=== PATIENT | female | born 1955 | race Caucasian/White ===

== ENCOUNTER 2017-12-14 14:02 | Inpatient (IN) ==
[2017-12-14] MEDS ORDERED: 0.9 % Sodium Chloride 1,000 ML IVC ONE (14:28)
[2017-12-14 15:06] LABS: Basophils % 0.2 %; Eosinophils # 0.1 K/mcL (0.0-0.6); Eosinophils % 1.1 %; Hematocrit 36.2 % (35.3-44.9); Hemoglobin 12.7 g/dL (11.5-15.4); Immature Granulocytes % 0.9 % (0-4); Lymphocytes # 1.2 K/mcL (0.6-4.6); Lymphocytes % 9.5 %; Mean Corpuscular HGB Conc 35.1 g/dL (31.6-35.5); Mean Corpuscular Hemoglobin 33.2 pg (28.0-33.3); Mean Corpuscular Volume 94.8 fL (83.0-100.0); Mean Platelet Volume 11.5 fL (9.4-12.4); Monocytes # 0.8 K/mcL (0.0-1.3); Monocytes % 6.7 %; Platelet Count 193 K/mcL (140-400); Red Blood Count 3.82 M/mcL (3.82-4.97); Red Cell Distribution Width 13.8 % (11.5-14.5); Segmented Neutrophils % 81.6 %
[2017-12-14 15:19] LABS: INR 0.8; Prothrombin Time 9.4 Seconds (9.4-12.1)
[2017-12-14 15:21] LABS: Activated Partial Thrombo Time 25.8 Seconds (26.0-36.0)
[2017-12-14 15:31] LABS: Alanine Aminotransferase 15 Units/L (7-52); Albumin 3.7 g/dL (3.5-5.7); Albumin/Globulin Ratio 1.3 (1.1-2.2); Alkaline Phosphatase 104 Units/L (34-104); Aspartate Amino Transferase 30 Units/L (13-39); BUN/Creatinine Ratio 6 (6-26); Bilirubin,Direct 0.3 mg/dL (0.0-0.2); Bilirubin,Indirect 0.6 mg/dL (0.0-1.2); Bilirubin,Total 0.9 mg/dL (0.3-1.0); Blood Urea Nitrogen 7 mg/dL (8-23); Calcium 9.4 mg/dL (8.6-10.3); Carbon Dioxide 41 mEq/L (23-29); Chloride 73 mEq/L (98-107); Creatine Kinase 123 Units/L (30-223); Ethanol < 10 mg/dL (Less than 10); Globulin 2.8 g/dL (2.4-3.5); Glucose 150 mg/dL (70-105); Osmolality,Calculated 255 (280-300); Potassium 2.1 mEq/L (3.5-5.1); Sodium 122 mEq/L (136-145); Total Protein 6.5 g/dL (6.4-8.9); Troponin I < 0.03 ng/mL (< 0.04); eGFR For Non-African Americans 50 (> 60)
[2017-12-14 15:34] LABS: Bilirubin,Urine Negative (Negative); Blood,Urine Moderate (Negative); Clarity,Urine Turbid (Clear); Color,Urine Yellow (Yellow); Glucose,Urine (UA) Normal (Normal); Ketones,Urine Negative (Negative); Leukocyte Esterase,Urine Large (Negative); Nitrite,Urine Negative (Negative); Protein,Urine Trace mg/dL (Neg-Trace); Specific Gravity,Urine 1.007 (1.010-1.025); Urobilinogen,Urine Normal (Normal)
[2017-12-14 15:35] LABS: Bacteria,Urine Many per hpf (None-Few); Hyaline Casts,Urine None Seen per lpf (None-Few); Squamous Epithelial Cell,Urine Many per lpf (None-Few); WBC,Urine TNTC per hpf (0-3)
[2017-12-14 15:40] LABS: Thyroid Stimulating Hormone 1.175 mcIU/mL (0.340-5.600)
[2017-12-14 15:44] LABS: Amphetamine Screen,Urine Negative ng/mL (Cutoff=1000); Barbiturate Screen,Urine Negative ng/mL (Cutoff=200); Benzodiazepines Screen,Urine Negative ng/mL (Cutoff=200); Cannabinoid Screen,Urine Negative ng/mL (Cutoff = 50); Cocaine Screen,Urine Negative ng/mL (Cutoff= 300); Opiate Screen,Urine Negative ng/mL (Cutoff=300); Phencyclidine Screen,Urine Negative ng/mL (Cutoff=25)
[2017-12-14 15:46] LABS: Platelet Estimate Slight Decrease (Normal)
[2017-12-14] MEDS ORDERED: cefTRIAXone 1,000 MG in Water for inj. (sterile) 20 ML 10 ML IVP ONE (15:52)
[2017-12-14] MEDS ORDERED: 0.9 % Sodium Chloride 1,000 ML IVC SCH (16:00)
--- NOTE | 2017-12-14 16:30 | Emergency Department Note ---
Disposition Clinical Impression: Hypokalemia Disposition: Admitted As Inpatient Condition: Undetermined Referrals: NONE,PCP [Primary Care Provider] - General Adult HPI - General Chief complaint: ED Psychiatric Symptoms Stated complaint: "1A eval/AMS?" Time Seen by Provider: 12/14/17 14:11 Nursing Notes Reviewed: Yes Vital Signs Reviewed: Yes - History of Present Illness HPI Narrative: This is a 62-year-old female who presents with concern for altered mental status. Apparently she has been acting pretty confused at home. She has been preaching the word of God. She actually showed up at gnosticism and was escorted out by the police. She was interrupting the sermon and actually arguing with the preacher. She has a history of COPD, tobacco abuse. She does smoke multiple packs of cigarettes a day. She has no pain or complaints at this time but does acknowledge that her behavior has been peculiar. She has no focal deficits on arrival. General: No acute distress HEENT: Pupils equal and reactive to light, extraoccular muscle movement is normal, TMS are clear bilaterally. Heart: RRR, No murmor rub or gallop Lungs: lungs clear, no wheezing, rales or ronchi. ABD: SNT, no focal areas or tenderness, no guarding or rebound tenderness. Extremities: No cyanosis, clubbing or edema Neuro: CN 2-12 in tact, no focal deficit. strength 5/5. A 12 point review of systems was completed and pertinent positives were discussed in history of present illness Medical decision making Findings consistent with altered mental status, possible urinary tract infection , hypokalemia. Will start potassium replacement both intravenous and orally. We will admit to the hospital after initiation of ceftriaxone. Blood culture was sent. Urinary culture was sent. The patient be admitted for further management of electrolyte derangements in the setting of altered mental status. Pain Scale: 0 - Related Data Home Medications Medication Instructions Recorded Confirmed Albuterol Sulfate [Proair Hfa] 2 puff IH Q4H PRN 10/30/15 10/30/15 Budesonide/Formoterol 80/4.5 2 puff IH BID 10/30/15 10/30/15 [Symbicort 80/4.5] Dicyclomine [Bentyl] 10 - 20 mg PO QID 10/30/15 10/30/15 Guaifenesin [Mucinex] 1,200 mg PO DAILY 10/30/15 10/30/15 Lisinopril [Zestril] 10 mg PO DAILY 10/30/15 10/30/15 Lovastatin [Mevacor] 40 mg PO HS 10/30/15 10/30/15 Omeprazole [PriLOSEC] 20 mg PO DAILY 10/30/15 10/30/15 Previous Rx's Medication Instructions Recorded predniSONE [Prednisone] 50 mg PO DAILY #6 tablet 11/15/17 Allergies Allergy/AdvReac Type Severity Reaction Status Date / Time No Known Allergies Allergy Verified 04/28/15 17:21 Past Medical History - Past Medical History Medical history: Reports: arthritis, asthma, cancer, COPD, GERD, hyperlipidemia , hypertension, osteoporosis Surgical history: Reports: hysterectomy, other Psychiatric history: Reports: no psych history [employer] WORK[employer] history: Reports: bilateral tubal ligation - Social History Smoking Status: Current every day smoker Smokeless Tobacco Status: No Alcohol use: Reports: none Drug use: Reports: none Physical Exam - General General appearance: alert Course Vital Signs Temperature 99.2 F 12/14/17 14:05 Pulse Rate 99 12/14/17 14:05 Respiratory Rate 16 12/14/17 14:05 Blood Pressure 119/78 12/14/17 14:05 O2 Sat by Pulse Oximetry 93 12/14/17 14:05 Temperature 99.2 F 12/14/17 14:49 Pulse Rate 81 12/14/17 16:18 Respiratory Rate 18 12/14/17 16:18 Blood Pressure 143/84 12/14/17 16:18 O2 Sat by Pulse Oximetry 97 12/14/17 16:18 Oxygen Delivery Oxygen Delivery Room Air Medical Decision Making - Lab Data Result diagrams: 12/14/17 14:54 12/14/17 14:54 Lab Results 12/14/17 12/14/17 12/14/17 Range/Units 14:54 14:54 14:54 WBC 12.2 H (4.3-11.1) K/mcL RBC 3.82 (3.82-4.97) M/mcL Hgb 12.7 (11.5-15.4) g/dL Hct 36.2 (35.3-44.9) % MCV 94.8 (83.0-100.0) fL MCH 33.2 (28.0-33.3) pg MCHC 35.1 (31.6-35.5) g/dL RDW 13.8 (11.5-14.5) % Plt Count 193 (140-400) K/mcL MPV 11.5 (9.4-12.4) fL Immature Gran % 0.9 (0-4) % Seg Neutrophils % 81.6 % Lymphocytes % 9.5 % Monocytes % 6.7 % Eosinophils % 1.1 % Basophils % 0.2 % Neutrophils # 10.0 H (1.6-8.9) K/mcL Lymphocytes # 1.2 (0.6-4.6) K/mcL Monocytes # 0.8 (0.0-1.3) K/mcL Eosinophils # 0.1 (0.0-0.6) K/mcL Basophils # 0.0 (0.0-0.2) K/mcL Platelet Estimate Slight Decrease L (Normal) PT 9.4 (9.4-12.1) Seconds INR 0.8 APTT 25.8 L (26.0-36.0) Seconds Carboxyhemoglobin (0-5) % Sodium 122 L (136-145) mEq/L Potassium 2.1 L* (3.5-5.1) mEq/L Chloride 73 L (98-107) mEq/L Carbon Dioxide 41 H* (23-29) mEq/L BUN 7 L (8-23) mg/dL Creatinine 1.10 (0.60-1.20) mg/dL Est GFR ( Amer) > 60 (> 60) Est GFR (Non-Af Amer) 50 L (> 60) BUN/Creatinine Ratio 6 (6-26) Glucose 150 H (70-105) mg/dL Calculated Osmolality 255 L (280-300) Calcium 9.4 (8.6-10.3) mg/dL Total Bilirubin 0.9 (0.3-1.0) mg/dL Direct Bilirubin 0.3 H (0.0-0.2) mg/dL Indirect Bilirubin 0.6 (0.0-1.2) mg/dL AST 30 (13-39) Units/L ALT 15 (7-52) Units/L Alkaline Phosphatase 104 (34-104) Units/L Ammonia (16-53) mcmol/L Creatine Kinase 123 (30-223) Units/L Troponin I < 0.03 (< 0.04) ng/mL Serum Total Protein 6.5 (6.4-8.9) g/dL Albumin 3.7 (3.5-5.7) g/dL Globulin 2.8 (2.4-3.5) g/dL Albumin/Globulin Ratio 1.3 (1.1-2.2) TSH 1.175 (0.340-5.600) mcIU/mL Urine Color (Yellow) Urine Clarity (Clear) Urine pH (5.0-8.0) pH Units Ur Specific Issue (1.010-1.025) Urine Protein (Neg-Trace) mg/dL Urine Glucose (UA) (Normal) mg/dL Urine Ketones (Negative) mg/dL Urine Blood (Negative) Urine Nitrite (Negative) Urine Bilirubin (Negative) Urine Urobilinogen (Normal) mg/dL Ur Leukocyte Esterase (Negative) Urine Microscopic RBC (0-3) per hpf Urine Microscopic WBC (0-3) per hpf Ur Squamous Epith Cells (None-Few) per lpf Urine Bacteria (None-Few) per hpf Hyaline Casts (None-Few) per lpf Ur Culture Indicated? (NO) Urine Opiates Screen (Jitcap=008) ng/mL Ur Barbiturates Screen (Kibgpd=454) ng/mL Ur Phencyclidine Scrn (Cutoff=25) ng/mL Ur Amphetamines Screen (Lmgnpw=5817) ng/mL U Benzodiazepines Scrn (Tbfgcp=165) ng/mL Urine Cocaine Screen (Cutoff= 300) ng/mL U Marijuana (THC) Screen (Cutoff = 50) ng/mL Ur Drug Screen Interp Ethyl Alcohol < 10 (Less than 10) mg/dL 12/14/17 12/14/17 12/14/17 Range/Units 14:54 15:08 15:16 WBC (4.3-11.1) K/mcL RBC (3.82-4.97) M/mcL Hgb (11.5-15.4) g/dL Hct (35.3-44.9) % MCV (83.0-100.0) fL MCH (28.0-33.3) pg MCHC (31.6-35.5) g/dL RDW (11.5-14.5) % Plt Count (140-400) K/mcL MPV (9.4-12.4) fL Immature Gran % (0-4) % Seg Neutrophils % % Lymphocytes % % Monocytes % % Eosinophils % % Basophils % % Neutrophils # (1.6-8.9) K/mcL Lymphocytes # (0.6-4.6) K/mcL Monocytes # (0.0-1.3) K/mcL Eosinophils # (0.0-0.6) K/mcL Basophils # (0.0-0.2) K/mcL Platelet Estimate (Normal) PT (9.4-12.1) Seconds INR APTT (26.0-36.0) Seconds Carboxyhemoglobin 11.7 H (0-5) % Sodium (136-145) mEq/L Potassium (3.5-5.1) mEq/L Chloride (98-107) mEq/L Carbon Dioxide (23-29) mEq/L BUN (8-23) mg/dL Creatinine (0.60-1.20) mg/dL Est GFR ( Amer) (> 60) Est GFR (Non-Af Amer) (> 60) BUN/Creatinine Ratio (6-26) Glucose (70-105) mg/dL Calculated Osmolality (280-300) Calcium (8.6-10.3) mg/dL Total Bilirubin (0.3-1.0) mg/dL Direct Bilirubin (0.0-0.2) mg/dL Indirect Bilirubin (0.0-1.2) mg/dL AST (13-39) Units/L ALT (7-52) Units/L Alkaline Phosphatase (34-104) Units/L Ammonia 35 (16-53) mcmol/L Creatine Kinase (30-223) Units/L Troponin I (< 0.04) ng/mL Serum Total Protein (6.4-8.9) g/dL Albumin (3.5-5.7) g/dL Globulin (2.4-3.5) g/dL Albumin/Globulin Ratio (1.1-2.2) TSH (0.340-5.600) mcIU/mL Urine Color Yellow (Yellow) Urine Clarity Turbid A (Clear) Urine pH 6.0 (5.0-8.0) pH Units Ur Specific Issue 1.007 L (1.010-1.025) Urine Protein Trace (Neg-Trace) mg/dL Urine Glucose (UA) Normal (Normal) mg/dL Urine Ketones Negative (Negative) mg/dL Urine Blood Moderate H (Negative) Urine Nitrite Negative (Negative) Urine Bilirubin Negative (Negative) Urine Urobilinogen Normal (Normal) mg/dL Ur Leukocyte Esterase Large H (Negative) Urine Microscopic RBC 3-5 H (0-3) per hpf Urine Microscopic WBC TNTC H (0-3) per hpf Ur Squamous Epith Cells Many H (None-Few) per lpf Urine Bacteria Many H (None-Few) per hpf Hyaline Casts None Seen (None-Few) per lpf Ur Culture Indicated? NO. A (NO) Urine Opiates Screen (Eyacwq=355) ng/mL Ur Barbiturates Screen (Slhovw=342) ng/mL Ur Phencyclidine Scrn (Cutoff=25) ng/mL Ur Amphetamines Screen (Vujbxx=0374) ng/mL U Benzodiazepines Scrn (Rcyiie=589) ng/mL Urine Cocaine Screen (Cutoff= 300) ng/mL U Marijuana (THC) Screen (Cutoff = 50) ng/mL Ur Drug Screen Interp Ethyl Alcohol (Less than 10) mg/dL 12/14/17 Range/Units 15:22 WBC (4.3-11.1) K/mcL RBC (3.82-4.97) M/mcL Hgb (11.5-15.4) g/dL Hct (35.3-44.9) % MCV (83.0-100.0) fL MCH (28.0-33.3) pg MCHC (31.6-35.5) g/dL RDW (11.5-14.5) % Plt Count (140-400) K/mcL MPV (9.4-12.4) fL Immature Gran % (0-4) % Seg Neutrophils % % Lymphocytes % % Monocytes % % Eosinophils % % Basophils % % Neutrophils # (1.6-8.9) K/mcL Lymphocytes # (0.6-4.6) K/mcL Monocytes # (0.0-1.3) K/mcL Eosinophils # (0.0-0.6) K/mcL Basophils # (0.0-0.2) K/mcL Platelet Estimate (Normal) PT (9.4-12.1) Seconds INR APTT (26.0-36.0) Seconds Carboxyhemoglobin (0-5) % Sodium (136-145) mEq/L Potassium (3.5-5.1) mEq/L Chloride (98-107) mEq/L Carbon Dioxide (23-29) mEq/L BUN (8-23) mg/dL Creatinine (0.60-1.20) mg/dL Est GFR ( Amer) (> 60) Est GFR (Non-Af Amer) (> 60) BUN/Creatinine Ratio (6-26) Glucose (70-105) mg/dL Calculated Osmolality (280-300) Calcium (8.6-10.3) mg/dL Total Bilirubin (0.3-1.0) mg/dL Direct Bilirubin (0.0-0.2) mg/dL Indirect Bilirubin (0.0-1.2) mg/dL AST (13-39) Units/L ALT (7-52) Units/L Alkaline Phosphatase (34-104) Units/L Ammonia (16-53) mcmol/L Creatine Kinase (30-223) Units/L Troponin I (< 0.04) ng/mL Serum Total Protein (6.4-8.9) g/dL Albumin (3.5-5.7) g/dL Globulin (2.4-3.5) g/dL Albumin/Globulin Ratio (1.1-2.2) TSH (0.340-5.600) mcIU/mL Urine Color (Yellow) Urine Clarity (Clear) Urine pH (5.0-8.0) pH Units Ur Specific Issue (1.010-1.025) Urine Protein (Neg-Trace) mg/dL Urine Glucose (UA) (Normal) mg/dL Urine Ketones (Negative) mg/dL Urine Blood (Negative) Urine Nitrite (Negative) Urine Bilirubin (Negative) Urine Urobilinogen (Normal) mg/dL Ur Leukocyte Esterase (Negative) Urine Microscopic RBC (0-3) per hpf Urine Microscopic WBC (0-3) per hpf Ur Squamous Epith Cells (None-Few) per lpf Urine Bacteria (None-Few) per hpf Hyaline Casts (None-Few) per lpf Ur Culture Indicated? (NO) Urine Opiates Screen Negative (Gkgstz=020) ng/mL Ur Barbiturates Screen Negative (Gflvxf=622) ng/mL Ur Phencyclidine Scrn Negative (Cutoff=25) ng/mL Ur Amphetamines Screen Negative (Agypls=5088) ng/mL U Benzodiazepines Scrn Negative (Umtpcg=842) ng/mL Urine Cocaine Screen Negative (Cutoff= 300) ng/mL U Marijuana (THC) Screen Negative (Cutoff = 50) ng/mL Ur Drug Screen Interp See Below Ethyl Alcohol (Less than 10) mg/dL
[2017-12-14] MEDS ORDERED: Ipratropium/Albuterol Neb 3 ML IH PRN (17:28)
[2017-12-14] MEDS ORDERED: Acetaminophen 325 MG TABLET PO PRN (17:30)
[2017-12-14] MEDS ORDERED: *HR* OxyCODONE Immed Rel 5 MG TABLET PO PRN (17:30)
[2017-12-14] MEDS ORDERED: Naloxone 0.4 MG/ML INJ IVP PRN (17:30)
--- NOTE | 2017-12-14 17:33 | Internal Med History&Physical ---
Date of Encounter: 12/14/17 Time of Encounter: 17:33 Internal Medicine - H&P: HPI Chief complaint: Altered mental status Admitted From: Home Plans for Post Hospital Care: Home History of present illness: Ms. Hoffmann is a 62 year old female with PMH of HLD , HTN, COPD, Tobacco abuse who presented to this facility in company of her family with complains of psychosis The patient reports being in this facility in November for COPD exacerbation, she was discharged home on steroids and Z-Lm. She continued to have symptoms of COPD and presented to her deputy insurance commissioner will give him more steroids. She reports that she thinks she might have missed her day dosing of the medications , as well as mixing up the dosing of her medication which included her antihypertensives and cholesterol medication. She reports that at the beginning of the week last week, she started having sensations of insects on her skin, she started feeling very hyperactive, and felt like she was feeling light headed. She reports " I got high because my neighbor was smoking marijuana. She also has been acting very bizzare, and according to her, and her family has been saying God has been speaking to her to do all sorts of things, which included arguing with a preacher in confucianism necessitating her removal from the premises. This is not her baseline. She also reports poor oral intake , she drinks pop most of the day She denies alcohol intake She reports these symptoms started during the period when she was taking prednisone for COPDE and worsened after she stopped taking it on instruction by her PCP (she called her PCP to complain of abnormal behavior by her). She also reports dysuria and suprapubic pain and tenderness. she calls is "I have been having "female issues" She denies vaginal discharge or uretheral discharge. She has no recent instrumentation She has no known psych history. She denied chest pain, SOB, leg swelling, calf swelling or tenderness. She has no focal weakness She has no known allergies. She denies ilicit drugs She smokes 1PPD of cigarettes Work up in the ER showed an unremarkable head and chesty imaging, UA was dirty with LE+, low osmolality, Chem showed Na of 122, K of 2.1, WBC 12,000, CO2 of 41 , hypochloremia, mild hyperglycema, LFT, TSH are WNL Ammonia level WNL, CK and Trop negative Past Med Surg Social Fam HX - Past Medical History Medical history: arthritis, asthma, atrial fibrillation, cancer, COPD, GERD, hyperlipidemia, hypertension, osteoporosis Additional medical history: HERNIA Psychiatric history: no psych history - Past Surgical History Surgical History: hysterectomy, other Additional surgical history: ovarian cancer cells removed - Social History Smoking Status: Current every day smoker Smokeless Tobacco Status: No Alcohol use: none Drug use: none - Family History Mother Living Status: Hx Family Neurologic Disorders: Yes (brain aneurysm) Father Living Status: Hx Family Cancer: Yes Internal Medicine - H&P: Meds Albuterol Sulfate [Proair Hfa] 2 puff IH Q4H PRN 10/30/15 [History] Lovastatin [Mevacor] 40 mg PO HS 10/30/15 [History] Omeprazole [PriLOSEC] 20 mg PO DAILY 10/30/15 [History] Fluticasone/Vilanterol [Breo Ellipta 100-25 Mcg INH] 1 puff IH DAILY 12/14/17 [ History] Lisinopril-HCTZ 20-12.5 [Prinzide 20-12.5] 1 tab PO DAILY 12/14/17 [History] Tiotropium [place] [Spiriva Respimat] 2 puff IH DAILY 12/14/17 [History] 3 Allergy/AdvReac Type Severity Reaction Status Date / Time No Known Allergies Allergy Verified 04/28/15 17:21 All Systems PM: A 10-system review of systems was performed and is negative for pertinent findings except as documented above in the HPI. - Constitutional Constitutional: as per HPI - EENT Eyes: as per HPI Ears: as per HPI Nose, mouth and throat: as per HPI - Cardiovascular Cardiovascular ROS IM: as per HPI - Respiratory Respiratory: as per HPI - Gastrointestinal Gastrointestinal: as per HPI - Genitourinary Genitourinary: as per HPI - Musculoskeletal Musculoskeletal ROS IM: as per HPI - Integumentary Integumentary IM: as per HPI - Neurological Neurological ROS: as per HPI - Hematologic/Lymphatic Hematologic/Lymphatic: as per HPI - Constitutional Vitals: Temp Pulse Resp BP Pulse Ox 99.2 F 81 18 143/84 97 12/14/17 14:49 12/14/17 16:18 12/14/17 16:18 12/14/17 16:18 10/08/18 16:18 General appearance: Present: A&O X 3 Exam: Gen: VSS Psych: Normal mood, normal affect, normal speech Neuro: AAOX3, moves all extremities , no focal deficits, normal speech, no focal weakness HEENT: xanthelasma, moist oral mucosa, no pallor , no cynosis Chest: CTAB Heart: S1, S2 only, no m/g/r Abdomen: Soft, suprapubic tenderness++ Extremities: NO pedal edema Skin: No rash Internal Med - H&P Results - Labs CBC & Chem 7: 12/14/17 14:54 12/14/17 14:54 Labs: Short CBC 12/14/17 Range/Units 14:54 WBC 12.2 H (4.3-11.1) K/mcL Hgb 12.7 (11.5-15.4) g/dL Hct 36.2 (35.3-44.9) % Plt Count 193 (140-400) K/mcL Neutrophils # 10.0 H (1.6-8.9) K/mcL BMP 12/14/17 14:54 Sodium 122 L Potassium 2.1 L* Chloride 73 L Carbon Dioxide 41 H* BUN 7 L Creatinine 1.10 Glucose 150 H Calcium 9.4 Cardiac Enzymes 12/14/17 Range/Units 14:54 Troponin I < 0.03 (< 0.04) ng/mL Liver Function 12/14/17 Range/Units 14:54 Total Bilirubin 0.9 (0.3-1.0) mg/dL Direct Bilirubin 0.3 H (0.0-0.2) mg/dL AST 30 (13-39) Units/L ALT 15 (7-52) Units/L Alkaline Phosphatase 104 (34-104) Units/L Albumin 3.7 (3.5-5.7) g/dL Urine 12/14/17 Range/Units 15:16 Urine Color Yellow (Yellow) Urine Clarity Turbid A (Clear) Urine pH 6.0 (5.0-8.0) pH Units Ur Specific [place] 1.007 L (1.010-1.025) Urine Protein Trace (Neg-Trace) mg/dL Urine Glucose (UA) Normal (Normal) mg/dL - Impressions ITS Impressions Chest X-Ray 12/14/17 14:28 IMPRESSION: No radiographic evidence for acute cardiopulmonary disease process. D/ / Tha Marquez / Tha Marquez Interpreting Provider: Tha Marquez Head CT 12/14/17 14:29 IMPRESSION: 1.No acute intracranial abnormality. D/ / Izaiah Kennedy MD / Izaiah Kennedy MD Interpreting Provider: Izaiah Kennedy MD - Assessment and plan (1) Encephalopathy Current Visit: Yes Status: Acute Assessment and plan: Improving Multifactorial: Steroid induced psychosis, UTI, Hyponatremia, Hypokalemia Head CT unremarkable Continue to monitor Will treat underlying problems (2) Hyponatremia with decreased serum osmolality Current Visit: Yes Status: Acute Assessment and plan: Hypoosmola hyponatremia with patient on HCTZ, recent prolonged steroid use and poor oral intake Obtain Urine Na and Osmolality IVF begun by ER N saline at 125cc/hr, continue same, Rpt chem q6hr Goal Na correction is 6 meq in 24 hrs If Na > by more than 5meq, will give D5 Hold HCTZ TSH WNL Check lipids with a.m labs (3) Hypokalemia Current Visit: Yes Status: Acute Assessment and plan: Replaced by ER with 40meq po and 40meq IV pt with chem q6h Continue to monitor (4) UTI (urinary tract infection) Current Visit: Yes Status: Suspected Assessment and plan: Suspected Patient is symptomatic with confusion and psychosis, dysuria, frequency and suprapubic tenderness COntinue Ceftriaxone daily Send blood and urine cultures Follow final urine cultures Qualifiers: Urinary tract infection type: acute cystitis Hematuria presence: with hematuria Qualified Code(s): N30.01 - Acute cystitis with hematuria (5) Obesity Current Visit: Yes Status: Chronic Assessment and plan: encourage weight loss Qualifiers: Obesity type: unspecified obesity type Obesity classification: adult class 3 (BMI >= 40) Serious obesity comorbidity presence: without serious comorbidity Body mass index: BMI 40.0-44.9 Qualified Code(s): E66.01 - Morbid (severe) obesity due to excess calories; Z68.41 - Body mass index (BMI) 40.0-44.9, adult (6) COPD (chronic obstructive pulmonary disease) Current Visit: Yes Status: Chronic Assessment and plan: Not in exacerbation Chest is CTAB Duonebs prn Qualifiers: COPD type: unspecified COPD Qualified Code(s): J44.9 - Chronic obstructive pulmonary disease, unspecified (7) Hypertension Current Visit: Yes Status: Chronic Assessment and plan: Continue lisinopril Hold HCTZ Add Norvasc prn Qualifiers: Hypertension type: essential hypertension Qualified Code(s): I10 - Essential (primary) hypertension (8) Dyslipidemia Current Visit: Yes Status: Chronic Assessment and plan: has xanthelasma Check lipid panel Continue home dose of statin (9) Afib Current Visit: Yes Status: Chronic Assessment and plan: per chart Not on any a/c including ASA CHADS score is 1 for HTN HR controlled EKG is sinus at this time Continue to monitor Qualifiers: Atrial fibrillation type: paroxysmal Qualified Code(s): I48.0 - Paroxysmal atrial fibrillation - Time Spent With Patient Total time spent is greater than 50% in coordination of care (as documented) at patient's floor/unit and/or counseling patient:
[2017-12-14 18:25] LABS: VBG HCO3 41 mEq/L (21-27); VBG PCO2 49 mmHg (41-51); VBG PH 7.53 pH Units (7.32-7.42); VBG PO2 53 mmHg (25-50)
[2017-12-14] MEDS ORDERED: Lisinopril 20 MG TABLET PO ONE (18:30)
[2017-12-14 20:36] LABS: Chol/HDL Ratio 2.3 (0-4.9)
[2017-12-14 20:43] LABS: BUN/Creatinine Ratio 6 (6-26); Blood Urea Nitrogen 6 mg/dL (8-23); Calcium 9.1 mg/dL (8.6-10.3); Carbon Dioxide 40 mEq/L (23-29); Chloride 78 mEq/L (98-107); Glucose 145 mg/dL (70-105); Osmolality,Calculated 258 (280-300); Potassium 2.3 mEq/L (3.5-5.1); Sodium 124 mEq/L (136-145); eGFR For Non-African Americans 56 (> 60)
[2017-12-14] MEDS: *HR* HYDROcodone/Acet 5/325 mg TABLET PO PRN (21:47)
[2017-12-15 02:14] LABS: Basophils % 0.2 %; Eosinophils # 0.1 K/mcL (0.0-0.6); Eosinophils % 1.4 %; Hematocrit 31.3 % (35.3-44.9); Lymphocytes # 1.6 K/mcL (0.6-4.6); Lymphocytes % 18.5 %; Mean Corpuscular HGB Conc 35.5 g/dL (31.6-35.5); Mean Corpuscular Hemoglobin 33.7 pg (28.0-33.3); Mean Corpuscular Volume 95.1 fL (83.0-100.0); Mean Platelet Volume 11.2 fL (9.4-12.4); Monocytes # 0.7 K/mcL (0.0-1.3); Monocytes % 8.1 %; Neutrophils # 6.2 K/mcL (1.6-8.9); Platelet Count 167 K/mcL (140-400); Red Blood Count 3.29 M/mcL (3.82-4.97); Segmented Neutrophils % 70.8 %
[2017-12-15 02:20] LABS: Hemoglobin 11.1 g/dL (11.5-15.4)
[2017-12-15 02:20] LABS: VBG HCO3 40 mEq/L (21-27); VBG PCO2 39 mmHg (41-51); VBG PH 7.62 pH Units (7.32-7.42); VBG PO2 105 mmHg (25-50)
[2017-12-15 02:33] LABS: BUN/Creatinine Ratio 7 (6-26); Blood Urea Nitrogen 7 mg/dL (8-23); Calcium 8.7 mg/dL (8.6-10.3); Carbon Dioxide 37 mEq/L (23-29); Chloride 85 mEq/L (98-107); Glucose 123 mg/dL (70-105); Osmolality,Calculated 265 (280-300); Potassium 2.6 mEq/L (3.5-5.1); Sodium 128 mEq/L (136-145); eGFR For Non-African Americans 58 (> 60)
--- NOTE | 2017-12-15 03:44 | Event Note ---
Date of Encounter: 12/15/17 Time of Encounter: 02:30 I was notified by the nurse of VBG critical lab result. pH on VBG 7.624. Vitals stable, I examined the patient and she was completely asymptomatic and without complaints, A&Ox3. No further orders at this time. Repeat labs pending at 04: 00.
[2017-12-15] MEDS: *HR* Enoxaparin 40 MG/0.4 ML SYRINGE SQ SCH (05:39)
[2017-12-15 06:11] LABS: BUN/Creatinine Ratio 6 (6-26); Blood Urea Nitrogen 6 mg/dL (8-23); Calcium 8.7 mg/dL (8.6-10.3); Carbon Dioxide 39 mEq/L (23-29); Chloride 85 mEq/L (98-107); Glucose 112 mg/dL (70-105); Osmolality,Calculated 266 (280-300); Potassium 2.4 mEq/L (3.5-5.1); Sodium 129 mEq/L (136-145); eGFR For Non-African Americans > 60 (> 60)
[2017-12-15] MEDS ORDERED: Potassium Chloride 40 MEQ, Lidocaine 1% 2 ML in D5% in Water 500 ML IVPB ONE (06:14)
[2017-12-15] MEDS: Lisinopril 20 MG TABLET PO SCH (08:33)
[2017-12-15] MEDS ORDERED: cefTRIAXone 1,000 MG in Water for inj. (sterile) 20 ML 10 ML IVP SCH (09:00)
[2017-12-15] MEDS ORDERED: Lisinopril-HCTZ 20-12.5mg TABLET PO SCH (09:00)
[2017-12-15 13:17] LABS: BUN/Creatinine Ratio 6 (6-26); Blood Urea Nitrogen 6 mg/dL (8-23); Calcium 9.2 mg/dL (8.6-10.3); Carbon Dioxide 40 mEq/L (23-29); Chloride 89 mEq/L (98-107); Glucose 110 mg/dL (70-105); Osmolality,Calculated 274 (280-300); Potassium 3.1 mEq/L (3.5-5.1); Sodium 133 mEq/L (136-145); eGFR For Non-African Americans 51 (> 60)
--- NOTE | 2017-12-15 17:17 | Internal Med Progress Note ---
Hospitalist Progress Note - Encounter Date of Encounter: 12/15/17 Time of Encounter: 11:00 - Subjective Interval History: Patient's altered mental status has resolved and hyponatremia gradually improving as is her hypokalemia Patient however requiring supplemental oxygenation this afternoon. - Exam Vitals: Temp Pulse Resp BP Pulse Ox 97.5 F L 84 14 124/75 97 12/15/17 10:22 12/15/17 16:21 12/15/17 16:21 12/15/17 16:21 12/15/17 16:21 Exam: Gen.: Nonacute distress, alert and oriented 3 ENT: Mucosal membranes moist Respiratory: Lungs are clear to auscultation bilaterally without any wheezing rhonchi or rales Cardiovascular: Normal S1 and S2 regular rate rhythm no murmurs rubs or gallops Abdomen: Soft, nontender and nondistended with positive bowel sounds Extremities: No lower extremity edema Skin: Normal color - Assessment and Plan (1) Encephalopathy Current Visit: Yes Status: Acute Assessment and Plan: Resolved; CT of the head without any acute findings UTI treated as above (2) Hyponatremia with decreased serum osmolality Current Visit: Yes Status: Acute Assessment and Plan: Hypoosmola hyponatremia with patient on HCTZ, recent prolonged steroid use and poor oral intake Hyponatremia improving Serum sodium was 128 on admission 12/14/17 and today is 133 Normal saline has been discontinued this morning; continue to monitor (3) Hypokalemia Current Visit: Yes Status: Acute Assessment and Plan: Serum potassium 3.1 this morning from 2.3 on admission Continue replacements (4) UTI (urinary tract infection) Current Visit: Yes Status: Suspected Assessment and Plan: Patient is symptomatic with confusion and psychosis, dysuria, frequency and suprapubic tenderness Continue Ceftriaxone daily; cultures pending (5) COPD (chronic obstructive pulmonary disease) Current Visit: Yes Status: Chronic Assessment and Plan: Stable; continue dual nebs as needed (6) Hypertension Current Visit: Yes Status: Chronic Assessment and Plan: Continue lisinopril and holding HCTZ (7) Dyslipidemia Current Visit: Yes Status: Chronic Assessment and Plan: Continue home dose of statin (8) Afib Current Visit: Yes Status: Chronic Assessment and Plan: Not on any a/c including ASA CHADS score is 1 for HTN (9) Obesity Current Visit: Yes Status: Chronic Assessment and Plan: Lifestyle modifications - Time Spent with Patient Total time spent is greater than 50% in coordination of care (as documented) at patient's floor/unit and/or counseling patient: Internal Medicine: Result - Labs CBC & Chem 7: 12/15/17 01:54 12/15/17 12:46 Labs: Short CBC 12/15/17 Range/Units 01:54 WBC 8.7 (4.3-11.1) K/mcL Hgb 11.1 L D (11.5-15.4) g/dL Hct 31.3 L (35.3-44.9) % Plt Count 167 (140-400) K/mcL Neutrophils # 6.2 (1.6-8.9) K/mcL BMP 12/14/17 12/15/17 12/15/17 19:58 01:54 05:21 Sodium 124 L 128 L 129 L Potassium 2.3 L* 2.6 L 2.4 L* Chloride 78 L 85 L 85 L Carbon Dioxide 40 H* 37 H 39 H BUN 6 L 7 L 6 L Creatinine 1.01 0.98 0.94 Glucose 145 H 123 H 112 H Calcium 9.1 8.7 8.7 12/15/17 12/15/17 09:35 12:46 Sodium 133 L Potassium 2.7 L 3.1 L Chloride 89 L Carbon Dioxide 40 H* BUN 6 L Creatinine 1.09 Glucose 110 H Calcium 9.2 - ABG Interpretation ABG results: PT/INR, D-dimer PT 9.4 Seconds (9.4-12.1) 12/14/17 14:54 Consult Discharge Plan - Plan Referrals: Logan Condon MD [Non-Partnered Physician] - (4) UTI (urinary tract infection) Qualifiers: Urinary tract infection type: acute cystitis Hematuria presence: with hematuria Qualified Code(s): N30.01 - Acute cystitis with hematuria (5) COPD (chronic obstructive pulmonary disease) Qualifiers: COPD type: unspecified COPD Qualified Code(s): J44.9 - Chronic obstructive pulmonary disease, unspecified (6) Hypertension Qualifiers: Hypertension type: essential hypertension Qualified Code(s): I10 - Essential (primary) hypertension (8) Afib Qualifiers: Atrial fibrillation type: paroxysmal Qualified Code(s): I48.0 - Paroxysmal atrial fibrillation (9) Obesity Qualifiers: Obesity type: unspecified obesity type Obesity classification: adult class 3 (BMI >= 40) Serious obesity comorbidity presence: without serious comorbidity Body mass index: BMI 40.0-44.9 Qualified Code(s): E66.01 - Morbid (severe) obesity due to excess calories; Z68.41 - Body mass index (BMI) 40.0-44.9, adult
--- NOTE | 2017-12-15 18:51 | Electrocardiograph Report ---
[place] [address] Test Date: 2017-12-14 Pat Name: Arabella Hoffmann Department: [id number] Room: 3A11 Gender: F Customer Relations Advisor: : [id number] Requested By: Inderjit Gaytan Order Number: [id number] Reading MD: Reymundo Branch Measurements Intervals [place] Rate: 94 P: 81 KS: 143 QRS: 80 QRSD: 106 T: 79 QT: 470 QTc: Interpretive Statements Sinus rhythm Nonspecific ST-T changes Electronically Signed On 12-15-2017 18:50:10 EDT by Reymundo Branch
[2017-12-15] MEDS: Budesonide/Formoterol 160/4.5 1 PUFF INH IH SCH (20:19)
[2017-12-15] MEDS: *HR* HYDROcodone/Acet 5/325 mg TABLET PO PRN (23:49)
[2017-12-16] MEDS: *HR* Enoxaparin 40 MG/0.4 ML SYRINGE SQ SCH (06:31)
[2017-12-16] MEDS: *HR* HYDROcodone/Acet 5/325 mg TABLET PO PRN (06:31)
[2017-12-16] MEDS: Budesonide/Formoterol 160/4.5 1 PUFF INH IH SCH (07:43)
[2017-12-16] MEDS: Lisinopril 20 MG TABLET PO SCH (08:29)
[2017-12-16 08:42] LABS: Basophils # 0.1 K/mcL (0.0-0.2); Basophils % 0.7 %; Eosinophils # 0.2 K/mcL (0.0-0.6); Eosinophils % 3.2 %; Hematocrit 35.4 % (35.3-44.9); Immature Granulocytes % 1.1 % (0-4); Lymphocytes # 2.1 K/mcL (0.6-4.6); Lymphocytes % 30.2 %; Mean Corpuscular HGB Conc 33.9 g/dL (31.6-35.5); Mean Corpuscular Hemoglobin 33.1 pg (28.0-33.3); Mean Corpuscular Volume 97.8 fL (83.0-100.0); Mean Platelet Volume 11.2 fL (9.4-12.4); Monocytes # 0.7 K/mcL (0.0-1.3); Monocytes % 10.1 %; Neutrophils # 3.8 K/mcL (1.6-8.9); Platelet Count 194 K/mcL (140-400); Red Blood Count 3.62 M/mcL (3.82-4.97); Red Cell Distribution Width 14.6 % (11.5-14.5); Segmented Neutrophils % 54.7 %
[2017-12-16] MEDS ORDERED: Ziprasidone injection 20 MG/ML VIAL IM ONE (08:54)
[2017-12-16 09:01] LABS: BUN/Creatinine Ratio 8 (6-26); Blood Urea Nitrogen 8 mg/dL (8-23); Calcium 9.4 mg/dL (8.6-10.3); Carbon Dioxide 37 mEq/L (23-29); Chloride 91 mEq/L (98-107); Glucose 109 mg/dL (70-105); Osmolality,Calculated 279 (280-300); Sodium 135 mEq/L (136-145); eGFR For Non-African Americans 56 (> 60)
[2017-12-16] MEDS ORDERED: *HR* LORazepam 2 MG/ML VIAL ONE ×2 (09:25→15:57)
[2017-12-16] MEDS ORDERED: *HR* LORazepam 2 MG/ML VIAL IVP ONE ×2 (09:30→15:54)
--- NOTE | 2017-12-16 09:38 | Event Note ---
Date of Encounter: 12/16/17 Time of Encounter: 09:00 Called by nurse this morning due to patient experiencing acute psychosis. Upon arrival at patient's room, patient had door shut with staff inside. When patient finally opened the door she grabbed a hold of me in began proclaiming that "God sent her to talk to me and in that we are to fight this in Court together." Patient was not confused and was alert and oriented 3 but was delusional and could not talk patient out of her delusions. Patient continued to hold onto me and would not let me go stating "she did not want me to leave her side because that is what God told her." Due to prolonged QT interval, patient was not given Geodon or Haldol but was given a 2 mg IV Benadryl. Will give patient Ativan if needed. Psychiatry was called for patient to be admitted 1A under psychiatric care due to acute delusional psychosis. Patient was admitted with hyponatremia which has resolved and patient's cultures negative for UTI. Patient is medically stable and cleared for admission to 1 a psychiatric unit.
[2017-12-16] MEDS ORDERED: Tiotropium 18 MCG inhalation IH SCH (10:00)
[2017-12-16 12:20] VITALS: BP 134/72
[2017-12-16] MEDS ORDERED: Potassium Chloride Elixir 20 MEQ/15 ML UDC PO ONE (12:32)
[2017-12-16] MEDS: *HR* LORazepam 1 MG TABLET PO ONE ×2 (15:18→16:03)
--- NOTE | 2017-12-16 15:31 | Discharge Summary ---
- NOTES TO OUTPATIENT PROVIDER Notes to Outpatient Provider: none Date of Encounter: 12/16/17 Time of Encounter: 11:00 - Discharge Diagnosis (1) Encephalopathy Priority: Primary Status: Acute (2) Hyponatremia with decreased serum osmolality Priority: Secondary Status: Acute (3) Hypokalemia Priority: Secondary Status: Acute (4) UTI (urinary tract infection) Priority: Secondary Status: Suspected Qualifiers: Urinary tract infection type: site unspecified Hematuria presence: with hematuria Qualified Code(s): N39.0 - Urinary tract infection, site not specified; R31.9 - Hematuria, unspecified (5) COPD (chronic obstructive pulmonary disease) Priority: Secondary Status: Chronic Qualifiers: COPD type: unspecified COPD Qualified Code(s): J44.9 - Chronic obstructive pulmonary disease, unspecified (6) Hypertension Priority: Secondary Status: Chronic Qualifiers: Hypertension type: essential hypertension Qualified Code(s): I10 - Essential (primary) hypertension (7) Dyslipidemia Priority: Secondary Status: Chronic (8) Afib Priority: Secondary Status: Chronic Qualifiers: Atrial fibrillation type: paroxysmal Qualified Code(s): I48.0 - Paroxysmal atrial fibrillation (9) Obesity Priority: Secondary Status: Chronic Qualifiers: Obesity type: unspecified obesity type Obesity classification: adult class 3 (BMI >= 40) Serious obesity comorbidity presence: without serious comorbidity Body mass index: BMI 40.0-44.9 Qualified Code(s): E66.01 - Morbid (severe) obesity due to excess calories; Z68.41 - Body mass index (BMI) 40.0-44.9, adult Hospital course: Patient is a 62-year-old female with past medical history significant for HLD , HTN, COPD, Tobacco abuse who presented to this facility in company of her family with complains of psychosis. The patient reports being in this facility in November for COPD exacerbation, she was discharged home on steroids and Z-Lm. She continued to have symptoms of COPD and presented to her site leader will give him more steroids. She reports that at the beginning of the week last week, she started having sensations of insects on her skin, she started feeling very hyperactive, and felt like she was feeling light headed. She reports " I got high because my neighbor was smoking marijuana. She also has been acting very bizzare, and according to her, and her family has been saying God has been speaking to her to do all sorts of things, which included arguing with a preacher in anglican necessitating her removal from the premises. This is not her baseline. During patients hospital stay she was treated for hyponatremia which resolved in addition to hypokalemia which improved. However patient psychosis did not improve and psychiatry consulted with recommendation for inpatient psychiatric management. - Time Spent with Patient Total time spent providing and/or coordinating discharge services: Less than 30 minutes - Discharge Medications Home Medications: Albuterol Sulfate [Proair Hfa] 2 puff IH Q4H PRN 10/30/15 [History] Lovastatin [Mevacor] 80 mg PO HS 10/30/15 [History] Omeprazole [PriLOSEC] 20 mg PO DAILY 10/30/15 [History] Fluticasone/Vilanterol [Breo Ellipta 100-25 Mcg INH] 1 puff IH DAILY 12/14/17 [ History] Lisinopril-HCTZ 20-12.5 [Prinzide 20-12.5] 1 tab PO DAILY 12/14/17 [History] Tiotropium [place] [Spiriva Respimat] 2 puff IH DAILY 12/14/17 [History] Allergies/Adverse Reactions: 3 Allergy/AdvReac Type Severity Reaction Status Date / Time No Known Allergies Allergy Verified 04/28/15 17:21 Date of admission: 12/14/17 17:30 Primary care physician: PCP NONE Consults: 12/14/17 19:05 Consult to Neurology Stroke Physician [CONS] Routine Reason for Consult: Financial coverage for meds, O2, nebulizers, original O2 through [facility] 12/16/17 09:25 Consult to Psychiatry [CONS] Stat Consulting Provider: Psych[facility] Reason consult: Psychosis - Constitutional Vitals: Temp Pulse Resp BP Pulse Ox 97.5 F L 90 16 134/72 96 12/16/17 06:22 12/16/17 12:19 12/16/17 12:19 12/16/17 12:19 12/16/17 12:19 General appearance: Present: A&O X 3 Exam: Gen.: Nonacute distress, alert and oriented 3 Psych: Psychosis - Patient Status Disposition: Home, Self-Care Condition: Undetermined - Discharge Instructions Follow Up With: Logan Condon MD [Non-Partnered Physician] -
--- NOTE | 2017-12-16 16:51 | Consult Note ---
Date of Encounter: 12/16/17 Time of Encounter: 15:00 Assessment & Recommendation (1) Bipolar disorder, current episode manic severe with psychotic features Status: Acute History of Present Illness Patient: new to practice Requesting Physician: Navjot Guerrero Reason for consult: confusion History of present illness: Ms. Hoffmann is a 62 year old female Patient was seen and evaluated. She told me that she needed me to step over the side because she was talking to God. This patient presents with a one-week history of distractibility decreased need for sleep grandiosity grandiose and sabianist delusions flight of ideas excessive activities thoughtlessness and excessive and loud speech. CC: Navjot Guerrero Past Med Surg Social Fam HX - Past Medical History Medical history: arthritis, asthma, atrial fibrillation, cancer, COPD, GERD, hyperlipidemia, hypertension, osteoporosis - Past Surgical History Surgical History: hysterectomy, other - Social History Smoking Status: Current every day smoker Smokeless Tobacco Status: No Alcohol use: none Drug use: none - Family History Mother Living Status: Hx Family Neurologic Disorders: Yes (brain aneurysm) Father Living Status: Hx Family Cancer: Yes Medications & Allergies Albuterol Sulfate [Proair Hfa] 2 puff IH Q4H PRN 10/30/15 [History] Lovastatin [Mevacor] 80 mg PO HS 10/30/15 [History] Omeprazole [PriLOSEC] 20 mg PO DAILY 10/30/15 [History] Fluticasone/Vilanterol [Breo Ellipta 100-25 Mcg INH] 1 puff IH DAILY 12/14/17 [ History] Lisinopril-HCTZ 20-12.5 [Prinzide 20-12.5] 1 tab PO DAILY 12/14/17 [History] Tiotropium [place] [Spiriva Respimat] 2 puff IH DAILY 12/14/17 [History] 3 Allergy/AdvReac Type Severity Reaction Status Date / Time No Known Allergies Allergy Verified 04/28/15 17:21 Review of Systems Psychiatric: Reports: abnormal sleep pattern, auditory hallucinations Psychiatry Exam - Constitutional Vitals: Temp Pulse Resp BP Pulse Ox 97.5 F L 90 16 134/72 96 12/16/17 06:22 12/16/17 12:19 12/16/17 12:19 12/16/17 12:19 10/10/18 12:19 General appearance: age & developmentally appropriate, thin - Musculoskeletal Gait: brisk - Psychiatric Patient Orientation: Yes Person, Yes Time, Yes Place Level of alertness: Alert Behavior: impulsive, talkative, dramatic Psychomotor activity: Increased Eye Contact: Maintains Eye Contact Mood Description: Expansive, Irritable Affect description: inappropriate to situation Speech Volume: Loud Thought Process: Tangential, Racing Thought Content: Yes Preoccupation, Yes Buddhism delusion, Yes Grandiose delusion Perceptual Disturbances: Yes Reacting to internal stimuli, Yes Auditory hallucinations, Yes Visual hallucinations Attention Span Ability: Unable to Focus Patient Reliability: Not Reliable Historian Intelligence Estimate: Average Judgment: Limited Insight: Minimal Results - Labs Labs: Laboratory Last Values WBC 7.0 K/mcL (4.3-11.1) 12/16/17 08:09 RBC 3.62 M/mcL (3.82-4.97) L 12/16/17 08:09 Hgb 12.0 g/dL (11.5-15.4) 12/16/17 08:09 Hct 35.4 % (35.3-44.9) 12/16/17 08:09 MCV 97.8 fL (83.0-100.0) 12/16/17 08:09 MCH 33.1 pg (28.0-33.3) 12/16/17 08:09 MCHC 33.9 g/dL (31.6-35.5) 12/16/17 08:09 RDW 14.6 % (11.5-14.5) H 12/16/17 08:09 Plt Count 194 K/mcL (140-400) 12/16/17 08:09 MPV 11.2 fL (9.4-12.4) 12/16/17 08:09 Immature Gran % 1.1 % (0-4) 12/16/17 08:09 Seg Neutrophils % 54.7 % 12/16/17 08:09 Lymphocytes % 30.2 % 12/16/17 08:09 Monocytes % 10.1 % 12/16/17 08:09 Eosinophils % 3.2 % 12/16/17 08:09 Basophils % 0.7 % 12/16/17 08:09 Neutrophils # 3.8 K/mcL (1.6-8.9) 12/16/17 08:09 Lymphocytes # 2.1 K/mcL (0.6-4.6) 12/16/17 08:09 Monocytes # 0.7 K/mcL (0.0-1.3) 12/16/17 08:09 Eosinophils # 0.2 K/mcL (0.0-0.6) 12/16/17 08:09 Basophils # 0.1 K/mcL (0.0-0.2) 12/16/17 08:09 Platelet Estimate Slight Decrease (Normal) L 12/14/17 14:54 PT 9.4 Seconds (9.4-12.1) 12/14/17 14:54 INR 0.8 12/14/17 14:54 APTT 25.8 Seconds (26.0-36.0) L 12/14/17 14:54 VBG pH 7.62 pH Units (7.32-7.42) H* 12/15/17 02:15 VBG pCO2 39 mmHg (41-51) L 12/15/17 02:15 VBG pO2 105 mmHg (25-50) H 12/15/17 02:15 VBG HCO3 40 mEq/L (21-27) H 12/15/17 02:15 Carboxyhemoglobin 11.7 % (0-5) H 12/14/17 15:08 Sodium 135 mEq/L (136-145) L 12/16/17 08:09 Potassium 3.0 mEq/L (3.5-5.1) L 12/16/17 08:09 Chloride 91 mEq/L (98-107) L 12/16/17 08:09 Carbon Dioxide 37 mEq/L (23-29) H 12/16/17 08:09 BUN 8 mg/dL (8-23) 12/16/17 08:09 Creatinine 1.00 mg/dL (0.60-1.20) 12/16/17 08:09 Est GFR ( Amer) > 60 (> 60) 12/16/17 08:09 Est GFR (Non-Af Amer) 56 (> 60) L 12/16/17 08:09 BUN/Creatinine Ratio 8 (6-26) 12/16/17 08:09 Glucose 109 mg/dL (70-105) H 12/16/17 08:09 Calculated Osmolality 279 (280-300) L 12/16/17 08:09 Calcium 9.4 mg/dL (8.6-10.3) 12/16/17 08:09 Magnesium 2.4 mg/dL (1.6-2.6) 12/15/17 01:54 Total Bilirubin 0.9 mg/dL (0.3-1.0) 12/14/17 14:54 Direct Bilirubin 0.3 mg/dL (0.0-0.2) H 12/14/17 14:54 Indirect Bilirubin 0.6 mg/dL (0.0-1.2) 12/14/17 14:54 AST 30 Units/L (13-39) 12/14/17 14:54 ALT 15 Units/L (7-52) 12/14/17 14:54 Alkaline Phosphatase 104 Units/L (34-104) 12/14/17 14:54 Ammonia 35 mcmol/L (16-53) 12/14/17 14:54 Creatine Kinase 123 Units/L (30-223) 12/14/17 14:54 Troponin I < 0.03 ng/mL (< 0.04) 12/14/17 14:54 Serum Total Protein 6.5 g/dL (6.4-8.9) 12/14/17 14:54 Albumin 3.7 g/dL (3.5-5.7) 12/14/17 14:54 Globulin 2.8 g/dL (2.4-3.5) 12/14/17 14:54 Albumin/Globulin Ratio 1.3 (1.1-2.2) 12/14/17 14:54 Triglycerides 80 mg/dL (< 150) 12/14/17 19:58 Cholesterol 147 mg/dL (< 200) 12/14/17 19:58 LDL Cholesterol, Calc 67 mg/dL (0-99) 12/14/17 19:58 VLDL Cholesterol, Calc 16 mg/dL (< 31) 12/14/17 19:58 HDL Cholesterol 64 mg/dL (40-59) H 12/14/17 19:58 Cholesterol/HDL Ratio 2.3 (0-4.9) 12/14/17 19:58 TSH 1.175 mcIU/mL (0.340-5.600) 12/14/17 14:54 Urine Color Yellow (Yellow) 12/14/17 15:16 Urine Clarity Turbid (Clear) A 12/14/17 15:16 Urine pH 6.0 pH Units (5.0-8.0) 12/14/17 15:16 Ur Specific [place] 1.007 (1.010-1.025) L 12/14/17 15:16 Urine Protein Trace mg/dL (Neg-Trace) 12/14/17 15:16 Urine Glucose (UA) Normal mg/dL (Normal) 12/14/17 15:16 Urine Ketones Negative mg/dL (Negative) 12/14/17 15:16 Urine Blood Moderate (Negative) H 12/14/17 15:16 Urine Nitrite Negative (Negative) 12/14/17 15:16 Urine Bilirubin Negative (Negative) 12/14/17 15:16 Urine Urobilinogen Normal mg/dL (Normal) 12/14/17 15:16 Ur Leukocyte Esterase Large (Negative) H 12/14/17 15:16 Urine Microscopic RBC 3-5 per hpf (0-3) H 12/14/17 15:16 Urine Microscopic WBC TNTC per hpf (0-3) H 12/14/17 15:16 Ur Squamous Epith Cells Many per lpf (None-Few) H 12/14/17 15:16 Urine Bacteria Many per hpf (None-Few) H 12/14/17 15:16 Hyaline Casts None Seen per lpf (None-Few) 12/14/17 15:16 Ur Culture Indicated? NO. (NO) A 12/14/17 15:16 Urine Osmolality 105 mOsm/kg (300-1090) L 12/14/17 21:07 Urine Sodium 29.6 mEq/L 12/14/17 21:07 Urine Opiates Screen Negative ng/mL (Hzkzmu=525) 12/14/17 15:22 Ur Barbiturates Screen Negative ng/mL (Fgfduy=591) 12/14/17 15:22 Ur Phencyclidine Scrn Negative ng/mL (Cutoff=25) 12/14/17 15:22 Ur Amphetamines Screen Negative ng/mL (Bvsvcg=9703) 12/14/17 15:22 U Benzodiazepines Scrn Negative ng/mL (Pmymql=490) 12/14/17 15:22 Urine Cocaine Screen Negative ng/mL (Cutoff= 300) 12/14/17 15:22 U Marijuana (THC) Screen Negative ng/mL (Cutoff = 50) 12/14/17 15:22 Ur Drug Screen Interp See Below 12/14/17 15:22 Ethyl Alcohol < 10 mg/dL (Less than 10) 12/14/17 14:54 Person Notif of Emerson Trimble 12/15/17 02:15 Consult Discharge Plan - Plan Referrals: Logan Condon MD [Non-Partnered Physician] -
== END 2017-12-16 16:43 | disposition home or self-care (01) | DRG 463 ==
LOC: EMEROOARM 14:02 → 3ANU 14:02 → SUATTDRO 17:30 → 3ANU 18:19
PROVIDERS: ADMIT Internal Medicine; ATTEND Hospitalist

== ENCOUNTER 2017-12-16 16:37 | Inpatient (IN) ==
[2017-12-16] MEDS ORDERED: *HR* LORazepam 2 MG/ML VIAL IM PRN (16:41)
[2017-12-16] MEDS ORDERED: Mag Hydrox/Al Hydrox/Simeth 30 ML UDC PO PRN (16:41)
[2017-12-16] MEDS ORDERED: MOM Conc 10 ML UD.LIQ PO PRN (16:41)
[2017-12-16] MEDS ORDERED: hydrOXYzine pamoate 25 MG CAPSULE PO PRN (16:41)
[2017-12-16] MEDS ORDERED: Haloperidol Lactate 5 MG/ML VIAL IM PRN (16:41)
[2017-12-16] MEDS ORDERED: traZODone 50 MG TABLET PO PRN (16:41)
[2017-12-16] MEDS ORDERED: *HR* LORazepam 1 MG TABLET PO PRN (16:41)
[2017-12-17] MEDS ORDERED: Tiotropium 18 MCG inhalation IH ONE (07:49)
[2017-12-17] MEDS: Lisinopril-HCTZ 20-12.5mg TABLET PO SCH (09:06)
[2017-12-17] MEDS: (Breo Ellipta 100-25 Mcg Inh) IH SCH (09:06)
[2017-12-17] MEDS ORDERED: Tiotropium 18 MCG inhalation IH SCH (10:00)
[2017-12-17] MEDS: Ibuprofen 400 MG TABLET PO PRN (12:27)
--- NOTE | 2017-12-17 14:26 | Psychiatry History & Physical ---
Date of Encounter: 12/17/17 Time of Encounter: 14:00 History of Present Illness Patient Stated Chief Complaint: I know he is innocent God told me so. Medicare Admission Attestation: For traditional Medicare patients the provided hospital inpatient services are reasonable and necessary and in the case of services not specified as inpatient -only under 42 CFR 419.22 (n), that they are appropriately provided as inpatient services in accordance 42 CFR 412.3. For Critical Access Hospital the patient may reasonably be expected to be discharged or transferred to a hospital within 96 hours after admission to the Critical Access Hospital. Admitted From: Intrahospital Transfer Plans for Post Hospital Care: Home History of Present Illness: Ms. Hoffmann is a 62 year old female The complaint. The patient's 62-year-old white female. She is and lives at home but she was transferred from the medical unit after being treated for a UTI. Chief complaint I did not want to go to the [facility]. History of present illness. The patient has a one-week disturbance of mood interest affect. When seen yesterday she was anxious speaking loud and intrusive gesticulating or responding to auditory hallucinations and believed that she was on a mission from God. Today the patient continues to have the features of felicia distractibility decreased need for sleep grandiosity caodaism delusions of flight of ideas excessive activity and overinvolvement excessive pressured speech. The thought content revolves around caodaism themes and the patient appears to be overzealous. Another example thoughtlessness was that she began arguing of the preacher in a prayer meeting and the police had to be called after she was escorted out for arguing with her she said that God was speaking to her. The patient has no major psychiatric history she is not been treated with mood stabilizers or nerve pills as far as I can tell. She has no trouble with alcohol or drugs by her report. She does smoke multiple packs of cigarettes per day and patient has bad COPD. In addition she has additional medical conditions. Of note the patient was placed on prednisone and given breathing treatments. She was started in November so the rapid onset of felicia is somewhat unexpected. Past medical history. Surgeries include tubal ligation. Illnesses atrial fibrillation, COPD, hypertension, low sodium, low potassium these are corrected smoking multiple packs per day. Her current medicines are as listed. And she has no known allergies Family history. The patient says that her son is innocent but he is been brought up on charges of rape which suggest the possibility of pedophilia. The patient's daughter told me yesterday that she has bipolar disorder. Social history the patient lives with her and her 16-year-old grandson. She is a high school graduate and she worked in a variety of places including the period The patient went on to describe a rather complicated situation involving her son who is currently brought on up on charges of rape. This involves these girlfriends daughter or daughters. This is been published in the [employer] and as a matter of public record. Nonetheless there is no conviction and the patient states that her son is innocent. The last article says that he was convicted but this case may be under appeal. Review of systems reveals shortness of breath. Patient had an desaturation went off oxygen. She has a fall risk as well Past Med Surg Social Fam HX - Past Medical History Medical history: arthritis, asthma, atrial fibrillation, cancer, COPD, GERD, hyperlipidemia, hypertension, osteoporosis - Past Psychiatric History Psychiatric history: Reports: no psych history Family psychiatric history: Yes Family History of Suicide: Unknown - Past Surgical History Surgical History: hysterectomy, other - Social History Smoking Status: Current every day smoker Smokeless Tobacco Status: No Alcohol use: none Drug use: none Occupational status: previously employed Current living situation: Home - Independent, With Family Activity Level: Independent ambulation Recent Out of Country Travel Within the Last 8 Weeks: No Exposure or Possible Exposure to Illness During Travel: No - Family History Mother Living Status: Hx Family Neurologic Disorders: Yes (brain aneurysm) Father Living Status: Hx Family Cancer: Yes Medications & Allergies Albuterol Sulfate [Proair Hfa] 2 puff IH Q4H PRN 10/30/15 [History] Lovastatin [Mevacor] 80 mg PO HS 10/30/15 [History] Omeprazole [PriLOSEC] 20 mg PO DAILY 10/30/15 [History] Fluticasone/Vilanterol [Breo Ellipta 100-25 Mcg INH] 1 puff IH DAILY 12/14/17 [ History] Lisinopril-HCTZ 20-12.5 [Prinzide 20-12.5] 1 tab PO DAILY 12/14/17 [History] Tiotropium [place] [Spiriva Respimat] 2 puff IH DAILY 12/14/17 [History] 3 Allergy/AdvReac Type Severity Reaction Status Date / Time No Known Allergies Allergy Verified 04/28/15 17:21 Review of Systems Respiratory: Reports: cough, dyspnea, wheezes Neurological: Reports: confusion Psychiatric: Reports: abnormal sleep pattern, irritability, mood swings Exam - HEENT Head exam IM: Present: atraumatic Eye exam IM: Present: EOMI, normal appearance, PERRL ENT exam IM: Present: normal exam - Neurological Neurological exam: Present: CN II-XII intact - Respiratory Respiratory exam IM: Present: CTAB - GI/Abdominal GI/Abdominal exam IM: Present: normal bowel sounds, soft. Absent: tenderness - Extremities Extremities exam IM: Present: full ROM - Skin Skin exam IM: Present: dry, warm - Additional Information Additional Information: The exam was performed with clinical nurse educator female medical student present. The patient had oxygen concentrator which was not on at the time of examination. The breath sounds were heard in lung velazquez but were distant. There were no carotid bruits - Constitutional Vitals: Temp Pulse Resp BP Pulse Ox 97.4 F L 98 20 149/88 88 12/17/17 09:00 12/17/17 09:00 12/17/17 09:00 12/17/17 09:00 12/17/17 09:00 General appearance: age & developmentally appropriate, well-groomed, well- nourished - Musculoskeletal Gait: normal Station: relaxed Strength & Tone: normal for patient - Psychiatric Patient Orientation: Yes Person, Yes Time, Yes Place Level of alertness: Alert Behavior: calm, impulsive, talkative, dramatic Psychomotor activity: Normal Eye Contact: Maintains Eye Contact Mood Description: Euphoric, Expansive Affect description: full range, labile, euphoric Speech Volume: Loud Speech pattern: normal rate, normal rhythm, normal tone, fluent, spontaneous, rambling, excessive, pressured Language & Vocabulary: consistent with education, high school level Thought Process: Linear, Goal Oriented, Racing Thought Content: No Suicidal ideation, No Homicidal ideation, No Overt delusions , Yes Congregation delusion, Yes Grandiose delusion Perceptual Disturbances: No Auditory hallucinations, No Visual hallucinations Attention Span Ability: Unable to Sustain Attention Memory Description: Grossly Intact Patient Reliability: Questionable Historian Fund of knowledge: Yes abstraction ability, Yes average, Yes aware of current events Intelligence Estimate: Average Judgment: Limited Insight: Minimal Assessment and Plan (1) Nicotine dependence, cigarettes, with other nicotine-induced disorders Current visit: Yes Status: Chronic Plan: Family/Supportive other meeting Risks, benefits, side effects, alternatives discussed w/pt: Yes Patient agreeable to treatment: Yes (2) Bipolar disorder, current episode manic severe with psychotic features Current visit: Yes Status: Acute Plan: Admit inpatient for safety and stabilization, Close observation, Suicide Precautions per unit protocol, Encourage participation in unit milieu, Group Therapy, Monitor sleep, Monitor appetite, Secure weapons, Family/Supportive other meeting Risks, benefits, side effects, alternatives discussed w/pt: Yes Patient agreeable to treatment: Yes Plans for Post Hospital Care: Home Estimated Length of Stay (Days): 11
[2017-12-17] MEDS: ARIPiprazole 2 MG TABLET PO SCH (20:34)
[2017-12-18] MEDS: Tiotropium 18 MCG inhalation IH SCH ×2 (01:35→08:52)
[2017-12-18] MEDS: (Breo Ellipta 100-25 Mcg Inh) IH SCH (08:53)
[2017-12-18] MEDS: Lisinopril-HCTZ 20-12.5mg TABLET PO SCH (08:53)
[2017-12-18] MEDS ORDERED: Tiotropium 18 MCG inhalation IH SCH (10:00)
--- NOTE | 2017-12-18 13:46 | Psychiatry Progress Note ---
Date of Encounter: 12/18/17 Time of Encounter: 13:45 Subjective Interval history: ID the patient is a 62-year-old white female. Chief complaint I know my signs heart is pure and I know my heart is pure. History of present illness. The patient improved significantly after 2 mg of aripiprazole. She rejects that she has psychiatric illness such as bipolar disorder but does except that she may have had a steroid psychosis or adverse reaction to therapeutic uses of corticosteroids. She is less confused and she had told people that she was spiritually worn out the patient is oxygen dependent and needs to remain on medicines. The patient would like to clear her son's name. But the patient has been insistent and providing his excessive details. The patient does not want to have further psychiatric treatment but is willing to stay in the hospital. No significant side effects to Abilify is been noted. The patient has said that she will stop smoking and that the Lord is healed her from this. The patient is not attending to hallucinations she was previously stated agreed to let me write a letter to her primary care physician internet sales consultant. Review of Systems Psychiatric: Reports: abnormal sleep pattern, auditory hallucinations, irritability, mood swings Results - Vital Signs Vital Signs: Temp Pulse Resp BP Pulse Ox 99.2 F 92 32 160/70 94 12/18/17 09:00 12/18/17 09:00 12/18/17 09:00 12/18/17 09:00 12/18/17 09:00 Assessment and Plan (1) Nicotine dependence, cigarettes, with other nicotine-induced disorders Current visit: Yes Status: Chronic Risks, benefits, side effects, alternatives discussed w/pt: Yes Patient agreeable to treatment: Yes (2) Bipolar disorder, current episode manic severe with psychotic features Current visit: Yes Status: Acute Risks, benefits, side effects, alternatives discussed w/pt: Yes Patient agreeable to treatment: Yes (3) COPD (chronic obstructive pulmonary disease) with emphysema Current visit: Yes Status: Acute Plan: Continue hospitalization, Monitor appetite Risks, benefits, side effects , alternatives discussed w/pt: Yes Patient agreeable to treatment: Yes Qualifiers: Emphysema type: unspecified Qualified Code(s): J43.9 - Emphysema, unspecified (4) Supplemental oxygen dependent Current visit: Yes Status: Acute Plan: Continue hospitalization, Close observation, Suicide Precautions per unit protocol, Encourage participation in unit milieu Risks, benefits, side effects , alternatives discussed w/pt: Yes Patient agreeable to treatment: Yes (5) Adrenal cortical steroids causing adverse effect in therapeutic use Current visit: Yes Status: Acute Plan: Continue hospitalization, Close observation, Suicide Precautions per unit protocol, Encourage participation in unit milieu Risks, benefits, side effects , alternatives discussed w/pt: Yes Patient agreeable to treatment: Yes (6) Mood disorder with manic features due to general medical condition Current visit: Yes Status: Acute Plan: Continue hospitalization, Close observation, Suicide Precautions per unit protocol, Encourage participation in unit milieu Risks, benefits, side effects , alternatives discussed w/pt: Yes Patient agreeable to treatment: Yes Consult Discharge Plan - Plan Referrals: [facility] [place] [Outside] - 01/04/18 1:30 pm (The above appointment is with Dr. Condon for primary healthcare and medication management services. You will also see Leonora, in the same office, for mental health counseling after you finish with Dr. Condon.) Psychiatry Exam - Constitutional Vitals: Temp Pulse Resp BP Pulse Ox 99.2 F 92 32 160/70 94 12/18/17 09:00 12/18/17 09:00 12/18/17 09:00 12/18/17 09:00 12/18/17 09:00 General appearance: age & developmentally appropriate, well-groomed, well- nourished - Musculoskeletal Gait: normal Station: relaxed Strength & Tone: normal for patient - Psychiatric Patient Orientation: Yes Person, Yes Time, Yes Place Level of alertness: Alert Behavior: calm, cooperative Psychomotor activity: Normal Eye Contact: Maintains Eye Contact Mood Description: Expansive, Irritable Affect description: congruent with mood, dysphoric, inappropriate to situation Speech Volume: Normal Speech pattern: normal rate, normal rhythm, normal tone, fluent, spontaneous Language & Vocabulary: consistent with education Thought Process: Linear, Goal Oriented Thought Content: No Suicidal ideation, No Homicidal ideation, No Overt delusions , Yes Congregational delusion Perceptual Disturbances: No Auditory hallucinations, No Visual hallucinations Attention Span Ability: Capable of Focused Attention Memory Description: Grossly Intact Patient Reliability: Questionable Historian Fund of knowledge: Yes abstraction ability, Yes aware of current events Intelligence Estimate: Average Judgment: Limited Insight: Minimal
[2017-12-18] MEDS: ARIPiprazole 2 MG TABLET PO SCH (20:15)
[2017-12-18] MEDS: Ibuprofen 400 MG TABLET PO PRN (23:12)
[2017-12-19] MEDS: Lisinopril-HCTZ 20-12.5mg TABLET PO SCH (08:42)
[2017-12-19] MEDS: Tiotropium 18 MCG inhalation IH SCH (08:43)
[2017-12-19] MEDS: (Breo Ellipta 100-25 Mcg Inh) IH SCH (08:46)
--- NOTE | 2017-12-19 10:15 | Psychiatry Progress Note ---
Date of Encounter: 12/19/17 Time of Encounter: 10:13 Subjective Interval history: Patient seen for follow-up. Case discussed with nursing staff staff report patient continued to be religiously preoccupied, also she is concerned about her son who has legal issues. She is medication compliant and medically stable. She denies any suicidal ideation. Anxious to go home. Speech is overdetailed and circumstantial. Review of Systems Psychiatric: Reports: abnormal sleep pattern, auditory hallucinations, irritability, mood swings Results - Vital Signs Vital Signs: Temp Pulse Resp BP Pulse Ox 97.9 F 88 20 156/77 97 12/19/17 08:51 12/19/17 08:51 12/19/17 08:51 12/19/17 08:51 12/19/17 08:51 Assessment and Plan (1) Mood disorder with manic features due to general medical condition Current visit: Yes Status: Acute Plan: Continue hospitalization, Close observation, Suicide Precautions per unit protocol, Encourage participation in unit milieu, Group Therapy, Monitor sleep, Monitor appetite Risks, benefits, side effects, alternatives discussed w/pt: Yes Patient agreeable to treatment: Yes Consult Discharge Plan - Plan Referrals: [facility] [place] [Outside] - 01/04/18 1:30 pm (The above appointment is with Dr. Condon for primary healthcare and medication management services. You will also see Leonora, in the same office, for mental health counseling after you finish with Dr. Condon.) Psychiatry Exam - Constitutional Vitals: Temp Pulse Resp BP Pulse Ox 97.9 F 88 20 156/77 97 12/19/17 08:51 12/19/17 08:51 12/19/17 08:51 12/19/17 08:51 12/19/17 08:51 General appearance: age & developmentally appropriate, well-nourished, unkempt, obese - Musculoskeletal Gait: normal, slow Station: relaxed Strength & Tone: normal for patient - Psychiatric Patient Orientation: Yes Person, Yes Time, Yes Place Level of alertness: Alert Behavior: calm, cooperative, suspicious Psychomotor activity: Normal Eye Contact: Maintains Eye Contact Mood Description: Euthymic/stable, Anxious, Labile Affect description: congruent with mood, labile, anxious Speech Volume: Normal Speech pattern: normal rate, normal rhythm, normal tone, fluent, spontaneous, inappropriate to situation, excessive Language & Vocabulary: consistent with education Thought Process: Linear, Goal Oriented, Tangential, Flight of Ideas Thought Content: No Suicidal ideation, No Homicidal ideation, No Overt delusions , Yes Preoccupation, Yes Mormon delusion Perceptual Disturbances: No Auditory hallucinations, No Visual hallucinations Attention Span Ability: Capable of Focused Attention Memory Description: Grossly Intact Patient Reliability: Reliable Historian Fund of knowledge: Yes abstraction ability, Yes aware of current events Intelligence Estimate: Average Judgment: Limited Insight: Partial
--- NOTE | 2017-12-19 20:14 | Internal Medicine Consult Note ---
<Salo Arshad - Last Filed: 12/19/17 21:20> Date of Encounter: 12/19/17 Time of Encounter: 20:13 - Assessment and plan (1) Chest pain Current Visit: Yes Status: Acute Assessment and plan: Chest pain, likely secondary to anxiety vs. hypertension Atypical in nature, occurred at rest and resolved spontaneously. HEART Score 2 Patient did experience transiently elevated blood pressure associated with this. Lability in BP hints toward anxiety as possible source EKG Demonstrates Normal sinus rhythm, no ST-T wave changes consistent with ischemia. Troponin is negative We recommend treatment of patient's anxiety with PRN ativan which has been previously ordered We will give Clonidine 0.1mg one time order if BP continues to remain elevated Additionally, plan to change BP meds as below. Patient is very low suspicion for ACS, do not plan to trend troponins at this time Continue to monitor vitals. We will follow. Qualifiers: Chest pain type: other chest pain Qualified Code(s): R07.89 - Other chest pain; R07.8 - Other chest pain (2) Hypertension Current Visit: Yes Status: Acute Assessment and plan: Acutely elevated BP Patient has been maintained on lisinopril-HCTZ .5 however continues to have elevated BP In addition to this, she continues to have electrolyte derangements and has now developed MATA We will discontinue Lisinopril-HCTZ at this time Start Amlodipine 10mg PO Daily Start Hydralazine 25mg PO TID Suspect that this acute Hypertension is in part caused by anxiety Recommend treatment of anxiety with established dose of PRN ativan Recheck BP following dose of ativan, if BP remains elevated at that time, will give one time dose of Clonidine 0.1mg PO Qualifiers: Hypertension type: essential hypertension Qualified Code(s): I10 - Essential (primary) hypertension (3) MATA (acute kidney injury) Current Visit: Yes Status: Acute Assessment and plan: Acute Kidney Injury, Serum creatinine 1.43 Likely secondary to use of Lisinopril-HCTZ, Ibuprofen, and elevated BP At this time we will hold these meds, encourage PO water intake, seek tighter BP control Recheck BMP on Thursday (4) COPD (chronic obstructive pulmonary disease) Current Visit: No Status: Chronic Assessment and plan: COPD, currently not in acute exacerbation Continue Spiriva and PRN Albuterol Continue O2 supplementation Qualifiers: COPD type: unspecified COPD Qualified Code(s): J44.9 - Chronic obstructive pulmonary disease, unspecified (5) Hyperkalemia Current Visit: Yes Status: Acute Assessment and plan: Mild hyperkalemia, likely secondary to MATA No EKG abnormalities noted Plan to hold lisinopril, increase PO water intake Recheck BMP on Thursday - Time Spent With Patient Total time spent is greater than 50% in coordination of care (as documented) at patient's floor/unit and/or counseling patient: Internal Medicine - CN: HPI - Data of Consult Patient: known to practice within the last 3 years Consult date: 12/19/17 Requesting Physician: Josue Christian MD - Consult Narrative Reason for consult: Chest pain History of present illness: Ms. Hoffmann is a 62 year old female with history of COPD, a fib, GERD, HLD, HTN and recent admission for steroid induced psychosis following COPD exacerbation who is currently admitted to the psychiatric [facility] and began experiencing substernal chest pain at about 1930 this evening. She states that she had woken up from sleep and was relaxing at which time she began to experience a substernal squeezing chest pain which was non-radiating in nature. The pain began at rest and was not exacerbated by exertion, nor was it alleviated by anything. She says that the pain resolved on its own relatively quickly, however it is returned intermittently for several minutes at a time. Overall the pain lasted for approximately 15-20 minutes. She said that she has not had a pain exactly like this in the past, however she was concerned that she may be having a heart attack in 1 to be checked out. Denied any associated shortness of breath that was above her baseline, cough, diaphoresis, palpitations. She had no dyspnea on exertion. Nothing seemed to alleviate or aggravate this pain. At the time of this pain she did have her blood pressure checked and it was apparently elevated to approximately 160/88. She had no other acute complaints. Significantly, the patient was recently admitted to [facility] for COPD exacerbation, UTI and psychosis. At that time she was found to have a significant hyponatremia with sodium of 122, hypokalemia at 2.1, hypochloremia and 73, and a bicarbonate of 41. Following medical stabilization and clearance, the patient was discharged and transferred to for psychiatric management. Medicine has now been consulted for management of this acute chest pain. Past Med Surg Social Fam HX - Past Medical History Medical history: arthritis, asthma, atrial fibrillation, cancer, COPD, GERD, hyperlipidemia, hypertension, osteoporosis Additional medical history: HERNIA Psychiatric history: no psych history - Past Surgical History Surgical History: hysterectomy, other Additional surgical history: ovarian cancer cells removed - Social History Smoking Status: Current every day smoker Smokeless Tobacco Status: No Alcohol use: none Drug use: none - Family History Mother Living Status: Hx Family Neurologic Disorders: Yes (brain aneurysm) Father Living Status: Hx Family Cancer: Yes Review of systems: Constitutional: Denies fevers, chills, weight loss, generalized fatigue Head/Neck: Denies CARVALHO, neck stiffness EENT: Denies vision changes/blurriness, rhinorrhea, congestion, sore throat CVS: Admits to chest pains, denies diaphoresis, palpitations, dyspnea on exertion Pulm: Admits to baseline shortness of breath, denies cough, sputum, wheezing GI: Denies abdominal pain, nausea, vomiting, diarrhea, constipation, melena, hematemasis : Denies dysuria, increased frequency, urgency, hematuria Heme: Denies ease of bleeding or bruising MSK: Denies joint pain, limited ROM Skin: Denies rashes, ulcers, color changes Neuro: Denies CARVALHO, paresthesias, focal deficits, ataxia Internal Medicine - CN: Meds Albuterol Sulfate [Proair Hfa] 2 puff IH Q4H PRN 10/30/15 [History] Lovastatin [Mevacor] 80 mg PO HS 10/30/15 [History] Omeprazole [PriLOSEC] 20 mg PO DAILY 10/30/15 [History] Fluticasone/Vilanterol [Breo Ellipta 100-25 Mcg INH] 1 puff IH DAILY 12/14/17 [ History] Lisinopril-HCTZ 20-12.5 [Prinzide 20-12.5] 1 tab PO DAILY 12/14/17 [History] Tiotropium [place] [Spiriva Respimat] 2 puff IH DAILY 12/14/17 [History] 3 Allergy/AdvReac Type Severity Reaction Status Date / Time No Known Allergies Allergy Verified 04/28/15 17:21 Hospitalist - CN: Exam - Constitutional Vitals: Temp Pulse Resp BP Pulse Ox 97.9 F 88 20 156/77 95 12/19/17 08:51 12/19/17 08:51 12/19/17 08:51 12/19/17 08:51 12/19/17 15:52 Exam: Gen: Vitals noted. No acute distress. HEENT: Normocephalic, atraumatic Neck: Supple. No adenopathy. Cardiac: RRR, no murmur, +S1/S2 Pulmonary: CTA bilaterally, no wheezes, rales or rhonchi, equal chest expansion Abdomen: soft, nontender, no guarding Back: Nontender throughout. MSK: ROM intact, no joint swelling noted Extremities: +1 b/l lower extremity edema, nontender calf, no cyanosis or clubbing Neuro: moves all extremities, no focal deficits. A&Ox3 Psych: Appropriate mood and behavior Internal Medicine - CN: Reslt - Labs CBC & Chem 7: 12/19/17 20:08 - EKG Data -: EKG Interpreted by Myself EKG shows normal: sinus rhythm, axis, intervals (MT 127, QRS 90, QTc 373), QRS complexes, ST-T waves Rate: normal (91) - EKG Data Prior EKG available for review: yes When compared to previous EKG: there are significant changes (Significantly improved from prior, with fewer ischemic markers than previously evident) Consult Discharge Plan - Plan Referrals: [facility] [Outside] - 01/04/18 1:30 pm (The above appointment is with Dr. Condon for primary healthcare and medication management services. You will also see Leonora, in the same office, for mental health counseling after you finish with Dr. Condon.) <Kasia Mcmanus - Last Filed: 12/19/17 22:07> Date of Encounter: 12/19/17 - Assessment and plan (1) Chest pain Current Visit: Yes Status: Acute Qualifiers: Chest pain type: other chest pain Qualified Code(s): R07.89 - Other chest pain; R07.8 - Other chest pain (2) COPD (chronic obstructive pulmonary disease) Current Visit: No Status: Chronic Qualifiers: COPD type: unspecified COPD Qualified Code(s): J44.9 - Chronic obstructive pulmonary disease, unspecified (3) Hypertension Current Visit: Yes Status: Acute Qualifiers: Hypertension type: essential hypertension Qualified Code(s): I10 - Essential (primary) hypertension (4) MATA (acute kidney injury) Current Visit: Yes Status: Acute (5) Hyperkalemia Current Visit: Yes Status: Acute - Time Spent With Patient Total time spent is greater than 50% in coordination of care (as documented) at patient's floor/unit and/or counseling patient: Internal Medicine - CN: HPI - Data of Consult Requesting Physician: Josue Christian MD - Consult Narrative History of present illness: Ms. Hoffmann is a 62 year old female Hospitalist - CN: Exam - Constitutional Vitals: Temp Pulse Resp BP Pulse Ox 98.1 F 94 18 186/96 95 12/19/17 22:03 12/19/17 22:03 12/19/17 22:03 12/19/17 22:03 12/19/17 15:52 Internal Medicine - CN: Reslt - Labs CBC & Chem 7: 12/19/17 20:08 Labs: BMP 12/19/17 20:08 Sodium 136 Potassium 5.0 Chloride 99 Carbon Dioxide 31 H BUN 20 Creatinine 1.43 H Glucose 108 H Calcium 10.0 Cardiac Enzymes 12/19/17 Range/Units 20:08 Troponin I < 0.03 (< 0.04) ng/mL Liver Function 12/19/17 Range/Units 20:08 Total Bilirubin 0.4 (0.3-1.0) mg/dL AST 24 (13-39) Units/L ALT 20 (7-52) Units/L Alkaline Phosphatase 96 (34-104) Units/L Albumin 3.8 (3.5-5.7) g/dL - Attending Attestation Arabella Rachell Hoffmann is a 62 year old woman with a history of psychotic disorders currently admitted to 1A after initial admission to medicine for electrolyte abnormalities. Consult is requested for chest pain. The patient was seen and evaluated. Vitals reviewed and remarkable for elevated BP. Patient states her chest pressure typically happens when BP is uncontrolled. Physical exam remarkable for obese woman in NAD. Moist mucous membranes and no conjunctivae pallor. No wheezes, rales or rhonchi. Nl s1/s2. Soft and non-tender abdomen. No peripheral edema or cyanosis. AAOx3. No focal deficits apparent. Affect appropriate. Current issues: Anxiety, Hypertensive urgency, Chest pain. All seem related. EKG obtained and reviewed; normal sinus rhythm. Advised to administer lorazepam 1mg and recheck BP afterwards. If remains uncontrolled clonidine 0.1mg is fine. Troponin obtained is negative. Based on history and presentation, deem low risk for ACS. Labs obtained, noted to have stage MATA. Potassium is within normal limits. Advised to increase oral H2O intake; order given to nursing staff. Will repeat labs in 2 days for re-eval. Will follow but in the interim please call with questions. Thank you for consulting. REE ARRIAZA.
[2017-12-19] MEDS ORDERED: cloNIDine HCl 0.1 MG TABLET PO PRN (20:37)
[2017-12-19] MEDS: ARIPiprazole 2 MG TABLET PO SCH (20:48)
[2017-12-19 20:53] LABS: Alanine Aminotransferase 20 Units/L (7-52); Albumin 3.8 g/dL (3.5-5.7); Albumin/Globulin Ratio 1.3 (1.1-2.2); Alkaline Phosphatase 96 Units/L (34-104); Aspartate Amino Transferase 24 Units/L (13-39); BUN/Creatinine Ratio 14 (6-26); Bilirubin,Total 0.4 mg/dL (0.3-1.0); Blood Urea Nitrogen 20 mg/dL (8-23); Carbon Dioxide 31 mEq/L (23-29); Chloride 99 mEq/L (98-107); Globulin 2.9 g/dL (2.4-3.5); Glucose 108 mg/dL (70-105); Magnesium 1.9 mg/dL (1.6-2.6); Osmolality,Calculated 285 (280-300); Sodium 136 mEq/L (136-145); Total Protein 6.7 g/dL (6.4-8.9); Troponin I < 0.03 ng/mL (< 0.04); eGFR For Non-African Americans 37 (> 60)
[2017-12-19] MEDS ORDERED: cloNIDine HCl 0.1 MG TABLET PO ONE (22:54)
[2017-12-20] MEDS ORDERED: hydrALAZINE 25 MG TABLET PO SCH ×2
[2017-12-20] MEDS ORDERED: hydrALAZINE 25 MG TABLET PO PRN (07:39)
--- NOTE | 2017-12-20 07:44 | Internal Med Progress Note ---
Hospitalist Progress Note - Encounter Date of Encounter: 12/20/17 Time of Encounter: 09:00 - Exam Vitals: Temp Pulse Resp BP Pulse Ox 98.5 F 103 20 139/81 98 12/20/17 00:54 12/20/17 00:54 12/20/17 00:54 12/20/17 00:54 12/19/17 22:22 Exam: Gen: Vitals noted. No acute distress. HEENT: Normocephalic, atraumatic Neck: Supple. No adenopathy. Cardiac: RRR, no murmur, +S1/S2 Pulmonary: CTA bilaterally, no wheezes, rales or rhonchi, equal chest expansion Abdomen: soft, nontender, no guarding Back: Nontender throughout. MSK: ROM intact, no joint swelling noted Extremities: +1 b/l lower extremity edema, nontender calf, no cyanosis or clubbing Neuro: moves all extremities, no focal deficits. A&Ox3 Psych: Appropriate mood and behavior - Assessment and Plan (1) Chest pain Current Visit: Yes Status: Acute Assessment and Plan: Chest pain, likely secondary to anxiety vs. hypertension Transient. Troponins negative. Normal echo in August. No further cardiac work up indicated (2) COPD (chronic obstructive pulmonary disease) Current Visit: No Status: Chronic Assessment and Plan: COPD, currently not in acute exacerbation Continue Spiriva and PRN Albuterol Continue O2 supplementation (3) Hypertension Current Visit: Yes Status: Acute Assessment and Plan: Acutely elevated BP Patient has been maintained on lisinopril-HCTZ 20-12.5 however continues to have elevated BP Will switch to amlodipine and lisinopril and discontinue HCTZ and addd hydralazine PRN BP stable (4) MATA (acute kidney injury) Current Visit: Yes Status: Acute Assessment and Plan: Acute Kidney Injury, Serum creatinine 1.43 Likely secondary to use of Lisinopril-HCTZ, Ibuprofen, and elevated BP Creatinine normal this am. Restart lisinopril (5) Hyperkalemia Current Visit: Yes Status: Acute Assessment and Plan: Resolved - Time Spent with Patient Total time spent is greater than 50% in coordination of care (as documented) at patient's floor/unit and/or counseling patient: Internal Medicine: Result - Labs CBC & Chem 7: 12/20/17 07:47 12/20/17 07:47 Labs: BMP 12/19/17 20:08 Sodium 136 Potassium 5.0 Chloride 99 Carbon Dioxide 31 H BUN 20 Creatinine 1.43 H Glucose 108 H Calcium 10.0 Cardiac Enzymes 12/19/17 Range/Units 20:08 Troponin I < 0.03 (< 0.04) ng/mL Liver Function 12/19/17 Range/Units 20:08 Total Bilirubin 0.4 (0.3-1.0) mg/dL AST 24 (13-39) Units/L ALT 20 (7-52) Units/L Alkaline Phosphatase 96 (34-104) Units/L Albumin 3.8 (3.5-5.7) g/dL - VTE Reasons for not Prescribing Prophylaxis: Treatment not Indicated - Low risk for VTE Consult Discharge Plan - Plan Referrals: [facility] [place] [Outside] - 01/04/18 1:30 pm (The above appointment is with Dr. Condon for primary healthcare and medication management services. You will also see Leonora, in the same office, for mental health counseling after you finish with Dr. Condon.) (1) Chest pain Qualifiers: Chest pain type: other chest pain Qualified Code(s): R07.89 - Other chest pain; R07.8 - Other chest pain (2) COPD (chronic obstructive pulmonary disease) Qualifiers: COPD type: unspecified COPD Qualified Code(s): J44.9 - Chronic obstructive pulmonary disease, unspecified (3) Hypertension Qualifiers: Hypertension type: essential hypertension Qualified Code(s): I10 - Essential (primary) hypertension
[2017-12-20] MEDS: amLODIPine 5 MG TABLET PO SCH (08:01)
[2017-12-20] MEDS: Lisinopril 20 MG TABLET PO SCH (08:01)
[2017-12-20 08:14] LABS: Hematocrit 34.8 % (35.3-44.9); Hemoglobin 11.2 g/dL (11.5-15.4); Mean Corpuscular HGB Conc 32.2 g/dL (31.6-35.5); Mean Corpuscular Hemoglobin 32.7 pg (28.0-33.3); Mean Corpuscular Volume 101.8 fL (83.0-100.0); Mean Platelet Volume 11.5 fL (9.4-12.4); Platelet Count 163 K/mcL (140-400); Red Blood Count 3.42 M/mcL (3.82-4.97); Red Cell Distribution Width 14.9 % (11.5-14.5); Segmented Neutrophils % 66.3 %
[2017-12-20 08:15] LABS: Basophils % 0.6 %; Eosinophils # 0.3 K/mcL (0.0-0.6); Eosinophils % 4.1 %; Immature Granulocytes % 0.9 % (0-4); Lymphocytes # 1.4 K/mcL (0.6-4.6); Lymphocytes % 21.4 %; Monocytes # 0.4 K/mcL (0.0-1.3); Monocytes % 6.7 %; Neutrophils # 4.4 K/mcL (1.6-8.9)
[2017-12-20 08:34] LABS: BUN/Creatinine Ratio 20 (6-26); Blood Urea Nitrogen 22 mg/dL (8-23); Calcium 9.9 mg/dL (8.6-10.3); Carbon Dioxide 30 mEq/L (23-29); Chloride 100 mEq/L (98-107); Glucose 102 mg/dL (70-105); Osmolality,Calculated 284 (280-300); Potassium 4.7 mEq/L (3.5-5.1); Sodium 135 mEq/L (136-145); eGFR For Non-African Americans 51 (> 60)
[2017-12-20] MEDS: (Breo Ellipta 100-25 Mcg Inh) IH SCH (08:47)
[2017-12-20] MEDS: Tiotropium 18 MCG inhalation IH SCH (11:05)
--- NOTE | 2017-12-20 13:15 | Psychiatry Progress Note ---
Date of Encounter: 12/20/17 Time of Encounter: 12:45 Subjective Interval history: Patient seen for follow-up case discussed with nursing staff. Review of the records of labs, consultation and medication. Medical consultation was ordered to evaluate chest pain and elevated blood pressure, internal medicine important is appreciated. Today she denied complaints, sleep is stable and denies any suicidal ideation. No evidence of any delusion or paranoia. Review of Systems Psychiatric: Reports: abnormal sleep pattern, auditory hallucinations, irritability, mood swings Results - Vital Signs Vital Signs: Temp Pulse Resp BP Pulse Ox 99.2 F 85 18 132/83 95 12/20/17 08:40 12/20/17 08:40 12/20/17 08:40 12/20/17 08:40 12/20/17 09:00 - Labs Labs: Laboratory Results - last 24 hr 12/19/17 12/20/17 12/20/17 20:08 07:47 07:47 WBC 6.6 RBC 3.42 L Hgb 11.2 L Hct 34.8 L MCV 101.8 H MCH 32.7 MCHC 32.2 RDW 14.9 H Plt Count 163 MPV 11.5 Immature Gran % 0.9 Seg Neutrophils % 66.3 Lymphocytes % 21.4 Monocytes % 6.7 Eosinophils % 4.1 Basophils % 0.6 Neutrophils # 4.4 Lymphocytes # 1.4 Monocytes # 0.4 Eosinophils # 0.3 Basophils # 0.0 Sodium 136 135 L Potassium 5.0 4.7 Chloride 99 100 Carbon Dioxide 31 H 30 H BUN 20 22 Creatinine 1.43 H 1.09 Est GFR ( Amer) 45 L > 60 Est GFR (Non-Af Amer) 37 L 51 L BUN/Creatinine Ratio 14 20 Glucose 108 H 102 Calculated Osmolality 285 284 Calcium 10.0 9.9 Magnesium 1.9 Total Bilirubin 0.4 AST 24 ALT 20 Alkaline Phosphatase 96 Troponin I < 0.03 Serum Total Protein 6.7 Albumin 3.8 Globulin 2.9 Albumin/Globulin Ratio 1.3 Assessment and Plan (1) 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 Condon for primary healthcare and medication management services. You will also see Leonora, in the same office, for mental health counseling after you finish with Dr. Condon.) Psychiatry Exam - Constitutional Vitals: Temp Pulse Resp BP Pulse Ox 99.2 F 85 18 132/83 95 12/20/17 08:40 12/20/17 08:40 12/20/17 08:40 12/20/17 08:40 12/20/17 09:00 General appearance: age & developmentally appropriate, well-groomed, well- nourished - Musculoskeletal Gait: normal Station: relaxed Strength & Tone: normal for patient - Psychiatric Patient Orientation: Yes Person, Yes Time, Yes Place Level of alertness: Alert Behavior: calm, cooperative Psychomotor activity: Normal Eye Contact: Maintains Eye Contact Mood Description: Euthymic/stable Affect description: congruent with mood, full range Speech Volume: Normal Speech pattern: normal rate, normal rhythm, normal tone, fluent, spontaneous Language & Vocabulary: consistent with education Thought Process: Linear, Goal Oriented Thought Content: No Suicidal ideation, No Homicidal ideation, No Overt delusions Perceptual Disturbances: No Auditory hallucinations, No Visual hallucinations Attention Span Ability: Capable of Focused Attention Memory Description: Grossly Intact Patient Reliability: Reliable Historian Fund of knowledge: Yes abstraction ability, Yes aware of current events Intelligence Estimate: Average Judgment: Limited Insight: Partial
[2017-12-20] MEDS: ARIPiprazole 2 MG TABLET PO SCH (20:16)
--- NOTE | 2017-12-21 07:34 | Internal Med Progress Note ---
Hospitalist Progress Note - Encounter Date of Encounter: 12/21/17 Time of Encounter: 08:00 - Exam Vitals: Temp Pulse Resp BP Pulse Ox 97.5 F L 86 20 148/82 95 12/20/17 21:00 12/20/17 21:00 12/20/17 21:00 12/20/17 21:00 12/20/17 21:00 Exam: Gen: Vitals noted. No acute distress. HEENT: Normocephalic, atraumatic Neck: Supple. No adenopathy. Cardiac: RRR, no murmur, +S1/S2 Pulmonary: CTA bilaterally, no wheezes, rales or rhonchi, equal chest expansion Abdomen: soft, nontender, no guarding Back: Nontender throughout. MSK: ROM intact, no joint swelling noted Extremities: +1 b/l lower extremity edema, nontender calf, no cyanosis or clubbing Neuro: moves all extremities, no focal deficits. A&Ox3 Psych: Appropriate mood and behavior - Assessment and Plan (1) Chest pain Current Visit: Yes Status: Acute Assessment and Plan: Chest pain, likely secondary to anxiety vs. hypertension Transient. Troponins negative. Normal echo in August. No further cardiac work up indicated will sign off and can call back with further questions (2) COPD (chronic obstructive pulmonary disease) Current Visit: No Status: Chronic Assessment and Plan: COPD, currently not in acute exacerbation Continue Spiriva and PRN Albuterol Continue O2 supplementation (3) Hypertension Current Visit: Yes Status: Acute Assessment and Plan: Acutely elevated BP Patient has been maintained on lisinopril-HCTZ 20-12.5 however continues to have elevated BP Will switch to amlodipine and lisinopril and discontinue HCTZ and addd hydralazine PRN BP stable at this time on curent regimen. will sign off and can call back with further questions (4) MATA (acute kidney injury) Current Visit: Yes Status: Acute Assessment and Plan: Acute Kidney Injury, Serum creatinine 1.43 Likely secondary to use of Lisinopril-HCTZ, Ibuprofen, and elevated BP Creatinine normal this am. Restart lisinopril (5) Hyperkalemia Current Visit: Yes Status: Acute Assessment and Plan: Resolved - Time Spent with Patient Total time spent is greater than 50% in coordination of care (as documented) at patient's floor/unit and/or counseling patient: Internal Medicine: Result - Labs CBC & Chem 7: 12/20/17 07:47 12/20/17 07:47 Labs: Short CBC 12/20/17 Range/Units 07:47 WBC 6.6 (4.3-11.1) K/mcL Hgb 11.2 L (11.5-15.4) g/dL Hct 34.8 L (35.3-44.9) % Plt Count 163 (140-400) K/mcL Neutrophils # 4.4 (1.6-8.9) K/mcL BMP 12/20/17 07:47 Sodium 135 L Potassium 4.7 Chloride 100 Carbon Dioxide 30 H BUN 22 Creatinine 1.09 Glucose 102 Calcium 9.9 - VTE Reasons for not Prescribing Prophylaxis: Treatment not Indicated - Low risk for VTE Consult Discharge Plan - Plan Referrals: [facility] [place] [Outside] - 01/04/18 1:30 pm (The above appointment is with Dr. Condon for primary healthcare and medication management services. You will also see Leonora, in the same office, for mental health counseling after you finish with Dr. Condon.) (1) Chest pain Qualifiers: Chest pain type: other chest pain Qualified Code(s): R07.89 - Other chest pain; R07.8 - Other chest pain (2) COPD (chronic obstructive pulmonary disease) Qualifiers: COPD type: unspecified COPD Qualified Code(s): J44.9 - Chronic obstructive pulmonary disease, unspecified (3) Hypertension Qualifiers: Hypertension type: essential hypertension Qualified Code(s): I10 - Essential (primary) hypertension
[2017-12-21 08:41] LABS: BUN/Creatinine Ratio 25 (6-26); Blood Urea Nitrogen 23 mg/dL (8-23); Calcium 10.2 mg/dL (8.6-10.3); Carbon Dioxide 29 mEq/L (23-29); Chloride 102 mEq/L (98-107); Glucose 101 mg/dL (70-105); Osmolality,Calculated 286 (280-300); Potassium 5.1 mEq/L (3.5-5.1); Sodium 136 mEq/L (136-145); eGFR For Non-African Americans > 60 (> 60)
[2017-12-21] MEDS: Lisinopril 20 MG TABLET PO SCH (08:51)
[2017-12-21] MEDS: amLODIPine 5 MG TABLET PO SCH (08:51)
[2017-12-21 09:36] VITALS: BP 160/89
--- NOTE | 2017-12-21 09:39 | Discharge Summary ---
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 Status: Acute Medications - Discharge Medications Prescriptions: ARIPiprazole [Abilify] 2 mg PO HS #30 tablet Albuterol Sulfate [Proair Hfa] 2 puff IH Q4H PRN 10/30/15 [History] Lovastatin [Mevacor] 80 mg PO HS 10/30/15 [History] Omeprazole [PriLOSEC] 20 mg PO DAILY 10/30/15 [History] Fluticasone/Vilanterol [Breo Ellipta 100-25 Mcg INH] 1 puff IH DAILY 12/14/17 [ History] Lisinopril-HCTZ 20-12.5 [Prinzide 20-12.5] 1 tab PO DAILY 12/14/17 [History] Tiotropium [place] [Spiriva Respimat] 2 puff IH DAILY 12/14/17 [History] ARIPiprazole [Abilify] 2 mg PO HS #30 tablet 12/21/17 [Rx] 3 Allergy/AdvReac Type Severity Reaction Status Date / Time No Known Allergies Allergy Verified 04/28/15 17:21 Results Procedures and tests throughout hospitalization: Completed Lab Orders Category Date Time Status BMP [Basic Metabolic Panel] Routine Lab 12/20/17 07:47 Completed BMP [Basic Metabolic Panel] Routine Lab 12/21/17 07:51 Completed CBC [Complete Blood Count] [HEME] Routine Lab 12/20/17 07:47 Completed Comprehensive Metabolic Panel Stat Lab 12/19/17 20:08 Completed Magnesium Stat Lab 12/19/17 20:08 Completed Troponin I Stat Lab 12/19/17 20:08 Completed Provider Date of admission: 12/16/17 16:37 Primary care physician: PCP NONE Consults: 12/19/17 19:39 Consult to Hospitalist [CONS] Stat Consulting Provider: Hospitalist Jaky Reason for Consult: Patient c/o of chest pain Call Completed: No Discharging clinician: Josue Christian Psychiatry Exam - Constitutional Vitals: Temp Pulse Resp BP Pulse Ox 97.8 F 94 20 160/89 95 12/21/17 09:00 12/21/17 09:00 12/21/17 09:00 12/21/17 09:00 12/21/17 09:00 General appearance: age & developmentally appropriate, well-groomed, well- nourished, obese - Musculoskeletal Gait: normal Station: relaxed Strength & Tone: normal for patient - Psychiatric Patient Orientation: Yes Person, Yes Time, Yes Place Level of alertness: Alert Behavior: calm, cooperative Psychomotor activity: Normal Eye Contact: Maintains Eye Contact Mood Description: Euthymic/stable Affect description: congruent with mood, full range Speech Volume: Normal Speech pattern: normal rate, normal rhythm, normal tone, fluent, spontaneous Language & Vocabulary: consistent with education Thought Process: Linear, Goal Oriented Thought Content: No Suicidal ideation, No Homicidal ideation, No Overt delusions Perceptual Disturbances: No Auditory hallucinations, No Visual hallucinations Attention Span Ability: Capable of Focused Attention Memory Description: Grossly Intact Patient Reliability: Reliable Historian Fund of knowledge: Yes abstraction ability, Yes aware of current events Intelligence Estimate: Average Judgment: Limited Insight: Partial Hospital Course Hospital course: Ms. Hoffmann is a 62 year old female admitted for evaluation treatment of acute psychosis. For details of admission please see H&P On the unit patient was displaying paranoid delusions poor sleep, and anxiety and and auditory hallucinations. Patient was started on Abilify 2 mg, she responded positively to the medication. She reported improved sleep she denied any hallucinations and she was less preoccupied with her son's legal problems. She participated in group activities, she was medication compliant. She was seen by medical consult to evaluate chest pain and blood pressure elevation and they were RESOLVED. On discharge patient was medically stable, denied any hallucinations, did not endorse any paranoia or preoccupation. She was educated about her discharge plans and follow-up appointments and medication compliance. She is discharged in stable condition. - Time Spent with Patient Total time spent providing and/or coordinating discharge services: Less than 30 minutes Assessment and Plan - Patient/Caregiver Discharge Instructions Activity: resume usual activities as tolerated Diet: regular diet - Follow up Plan Follow up with: [facility] [Outside] - 01/04/18 1:30 pm (The above appointment is with Dr. Condon for primary healthcare and medication management services. You will also see Leonora, in the same office, for mental health counseling after you finish with Dr. Condon.) Functional capacity at discharge: independent ambulation Overall status at discharge: Stable Disposition: Home, Self-Care Quality - Multiple Antipsychotics Patient discharged on 2 or more antipsychotic medications: No Procedures - Procedures Procedures: Medication Management, Crisis Stabilization, Supportive Therapy, Group Therapy, Psychoeducational Therapy
[2017-12-21] MEDS: (Breo Ellipta 100-25 Mcg Inh) IH SCH (09:40)
[2017-12-21] MEDS: Tiotropium 18 MCG inhalation IH SCH (09:56)
--- NOTE | 2017-12-26 20:56 | Electrocardiograph Report ---
[address] [place], [place] [address] Test Date: 2017-12-19 Pat Name: Arabella Hoffmann Department: 101 Room: 1A23 Gender: F Crossing Gateman: [facility] : 1955 Requested By: Salo Arshad Order Number: [id number] Reading MD: Carlyn Leon Measurements Intervals [place] Rate: 91 P: 73 [place]: 127 QRS: 69 QRSD: 90 T: 74 QT: 324 QTc: 373 Interpretive Statements SINUS RHYTHM WITH SINUS ARRHYTHMIA POSSIBLE LEFT ATRIAL ENLARGEMENT Electronically Signed On 12-26-2017 20:54:52 EDT by Carlyn Leon
== END 2017-12-21 11:15 | disposition home or self-care (01) | DRG 753 ==
LOC: SUATTDRO 16:37 → 1ANU 16:37
PROVIDERS: ADMIT Psychiatry & Neurology Forensic Psychiatry; ATTEND Psychiatry & Neurology Psychiatry